=== PATIENT | male | born 1975 ===

== ENCOUNTER 2020-11-06 13:43 | Emergency (ER) | payer OTHER, SELFPAY ==
--- NOTE | ~2020-11-06 | XR_ITS ---
EXAMINATION: XR ANKLE, LEFT CLINICAL INFORMATION: Pain COMPARISON: None TECHNIQUE: AP, lateral, and mortise views of the left ankle. FINDINGS: There is an osteochondral lesion medial side superior talar dome measuring at least 0.5 cm with extension to the articular surface. The ankle mortise is symmetric. The malleoli are intact. There is spurring from the medial malleolus and distal anterior tibia. There are bulky posterior and plantar calcaneal spurs. The retrocalcaneal recess is preserved. The subtalar joint is unremarkable. XR/XR ankle LT min 3V IMPRESSION: 1. Osteochondral lesion medial superior talar dome extending to articular surface. 2. Bulky posterior and plantar calcaneal spurs. 3. The malleoli are intact. Ankle mortise is symmetric.
--- NOTE | ~2020-11-06 | XR_ITS ---
EXAMINATION: XR LUMBOSACRAL SPINE CLINICAL INFORMATION: Pain COMPARISON: Radiographs lumbar spine 06/22/2018. TECHNIQUE: Three views of the lumbosacral spine. FINDINGS: There is normal lumbar segmentation with 5 nonrib-bearing lumbar vertebrae of normal height. There is again mild straightening of the lumbar lordosis. There is no lumbar vertebral compression, spondylolisthesis, destructive process. There are multilevel degenerative disc changes with mild disc narrowing and endplate sclerosis and multilevel vertebral spurring, greatest at L1-L2 and L5-S1. There is facet degeneration L4-S1. Degenerative changes again noted lower SI joints, greater on right. XR/XR lumbar spine 2-3V IMPRESSION: Multilevel degenerative changes lumbosacral spine similar to prior exam 06/22/2018.
[2020-11-06 15:57] VITALS: BP 149/80; PULSE 85; RESP 20; TEMP 37.3; O2SAT 95; BMI 67.3
--- NOTE | 2020-11-06 17:55 | ED.FALL ---
HPI - Fall General Chief Complaint: Fall Stated Complaint: fall lower back pain Time Seen by Provider: 11/06/20 17:53 History of Present Illness HPI Narrative: Patient is a 45-year-old male accidentally fell in a porch. Complaining of pain to the ankle on the left. Complaining of back pain. Patient denies any head injury. Not on any blood thinners. He is a large male approximately 500 lb. No fever no chills no cough no congestion no abdominal pain. Patient had a loose stepped in the porch. Steps on it accidentally. Subsequently patient fell. No loss of consciousness. Related Data Home Medications Medication Instructions Recorded Confirmed citalopram 40 mg tablet 40 mg PO DAILY 01/05/20 05/17/20 lorazepam 1 mg tablet 0 mg PO 01/05/20 05/17/20 trazodone 100 mg tablet 0 mg PO 01/05/20 05/17/20 zolpidem 10 mg tablet 10 mg PO BEDTIME PRN 01/05/20 05/17/20 Previous Rx's Medication Instructions Recorded triamcinolone acetonide 0.5 % 1 applic TOPICAL BID 30 Days #30 g 01/10/20 topical cream gabapentin 600 mg tablet 600 mg PO BID #60 tab 03/09/20 Allergies Allergy/AdvReac Type Severity Reaction Status Date / Time No Known Allergies Allergy Verified 05/17/20 17:36 Review of Systems Review of Systems: No fever no chills no chest pain or shortness of breath no diaphoresis. No nausea no vomiting no head injury. Yes all other systems are reviewed and are negative PMFSH Past Medical History Attestation statement: The following information was validated with the patient. Medical History Blurry vision COVID-19 Daytime sleepiness Depression with anxiety Insomnia Skin lesion Super-super obese Surgical History No pertinent past surgical history Family History Family History Father Diabetes Hypertension Paternal Grandmother Diabetes Mother Hypertension Social History Social History Advance Directives: No Advance Directives Information Provided: No Physical Exam Vital Signs: Vital Signs: Last Vital Signs Temp 99.2 F 11/06/20 15:57 Pulse 85 11/06/20 15:57 Resp 20 11/06/20 15:57 BP 149/80 H 11/06/20 15:57 Pulse Ox 95 11/06/20 15:57 Body Mass Index 67.3 Appearance: Alert. Oriented X3. No acute distress. Eyes: Pupils equal, round and reactive to light. ENT: Pharynx normal. Neck: Normal inspection. Neck supple. No lymph nodes noted. No crepitus CVS: Normal heart rate and rhythm. Pulses normal. Normal S1 and S2 Respiratory: No respiratory distress. Breath sounds normal. No Wheezing. No rales Abdomen: Soft and nontender. No rigidity. No distention. good BS x4 Skin: Skin warm and dry. Normal skin color. Normal skin turgor. Extremities: No lower extremity edema. Neurovascular intact to all extremities. No Lacerations. No Rash. Positive minimal pain on palpation on the medial malleolus. Range of motion of the ankle intact. There is no pain on palpation of the lateral malleolus there is no pain on palpation at the base of the 5th metatarsal. There is good pulses in the foot there is good sensation in the feet. Capillary refill is less than 2 seconds. Neuro: Oriented X 3. No motor deficit. No sensory deficit. Moving all extermities. No slurred speech MDM - Fall MDM Narrative Medical decision making narrative: X-ray did not show any acute fracture. A cyst was found in the bones on the left ankle. Will have patient follow-up with orthopedics on an outpatient basis. Motrin for pain. Close follow-up. Discharge Plan Discharge Clinical Impression: Sprain of ankle, Back sprain Patient Disposition: Home, Self-Care Instructions: Ankle Sprain (ED), Back Pain (ED) Prescriptions: No Action triamcinolone acetonide 0.5 % cream 1 applic topical BID 30 Days Qty: 30 RF: 11 gabapentin 600 mg tablet 600 mg PO BID Qty: 60 RF: 6 trazodone 100 mg tablet 0 mg PO RF: 0 citalopram 40 mg tablet 40 mg PO DAILY RF: 0 lorazepam 1 mg tablet 0 mg PO RF: 0 zolpidem 10 mg tablet 10 mg PO BEDTIME PRNRF: 0 Referrals: Bill Ryder MD [Physician] - 2 days (Ice. There is a cyst noted in your left ankle. Close follow-up with Orthopedic advised.)
[2020-11-06] MEDS: Diphth,Pertus(ACell),Tet Adult 0.5 ML SYRINGE IM (18:37)
== END 2020-11-06 18:45 | disposition home or self-care (01) ==
PROVIDERS: Emergency Provider Emergency Medicine Emergency Medical Services; PCP Internal Medicine
DX: S93.402A Sprain of unspecified ligament of left ankle, initial encounter (principal); S33.5XXA Sprain of ligaments of lumbar spine, initial encounter; W17.89XA Other fall from one level to another, initial encounter; M85.472 Solitary bone cyst, left ankle and foot; E66.01 Morbid (severe) obesity due to excess calories; Y93.89 Activity, other specified; Y92.038 Other place in apartment as the place of occurrence of the external cause; Y99.9 Unspecified external cause status
CPT/HCPCS: 72100; 73610; 90471; 90715; 99283; 99284

== ENCOUNTER → 2021-06-12 13:50 | Outpatient (BNVA) | payer OTHER, SELFPAY | PROVIDERS: PCP Internal Medicine; Visit Provider Physician Assistant Surgical | DX: E66.01 Morbid (severe) obesity due to excess calories (principal); Z68.44 Body mass index [BMI] 60.0-69.9, adult | CPT/HCPCS: 99212 ==

== ENCOUNTER → 2021-06-19 10:10 | Outpatient (BNVA) | payer OTHER, SELFPAY | PROVIDERS: PCP Internal Medicine; Referring Provider Internal Medicine; Visit Provider Physician Assistant | DX: Z13.89 Encounter for screening for other disorder (principal) ==

== ENCOUNTER 2021-06-20 06:31 | Outpatient (REF) | payer OTHER, SELFPAY ==
--- NOTE | ~2021-06-20 | XR_ITS ---
EXAMINATION: XR CHEST CLINICAL INFORMATION: Morbid obesity COMPARISON: 08/19/2018 TECHNIQUE: 2 views of the chest were obtained. FINDINGS: Normal symmetric lung volumes. No parenchymal consolidation. No pleural effusion. No pneumothorax. Cardiomediastinal silhouette and pulmonary vascularity are within normal limits. No acute osseous abnormalities. XR/XR chest 2V IMPRESSION: No acute findings.
--- NOTE | 2021-06-20 06:39 | ECG_ITS ---
Test Reason : OBESITY Blood Pressure : / mmHG Vent. Rate : 075 BPM Atrial Rate : 075 BPM P-R Int : 180 ms QRS Dur : 084 ms QT Int : 370 ms P-R-T Axes : 060 074 059 degrees QTc Int : 413 ms Normal sinus rhythm Normal ECG When compared with ECG of 18-MAY-2010 09:31, Vent. rate has decreased BY 37 BPM Referred By: Amadeo Kang Electronically Signed By:SUSHIL REBOLLEDO MD
[2021-06-20 06:56] LABS: MANUAL DIFF FLAG NO
[2021-06-20 07:04] LABS: Basophils Absolute Auto 0.1 X10*3/uL (0.0-0.2); Basophils Percent Auto 0.5 % (0-2); Eosinophils Absolute Auto 0.2 X10*3/uL (0.0-0.4); Hematocrit 43.1 % (42.0-52.0); Hemoglobin 13.6 g/dl (14.0-18.0); Imm Gran Abs Auto 0.05 X10*3/uL (0.00-0.03); Imm Gran Pct Auto 0.4 % (0.0-0.4); Lymphocytes Absolute Auto 3.1 X10*3/uL (1.2-4.9); Lymphocytes Percent Auto 26.1 % (20-40); Mean Corpuscular HGB Conc 31.6 g/dl (31.0-36.0); Mean Corpuscular Hemoglobin 26.7 pg (27.0-33.0); Mean Corpuscular Volume 84.7 fL (80.0-98.0); Mean Platelet Volume 10.4 fL (9.4-12.4); Monocytes Absolute Auto 0.8 X10*3/uL (0.1-1.2); Monocytes Percent Auto 6.8 % (2-11); Neutrophils Absolute Auto 7.5 x10*3/uL (2.0-8.3); Neutrophils Percent Auto 64.2 % (45-73); Platelet Count 280 X10*3/uL (160-400); Red Blood Count 5.09 X10*6/uL (4.60-5.80); Red Cell Distribution Width 13.7 % (11.0-16.0); White Blood Count 11.7 X10*3/uL (4.8-10.8)
[2021-06-20 07:25] LABS: Alanine Aminotransferase 27 U/L (0-40); Albumin Level 4.2 g/dL (3.5-5.0); Alkaline Phosphatase 54 U/L (39-117); Anion Gap 14 (12-20); Aspartate Amino Transferase 20 U/L (5-37); Bilirubin Total 0.6 mg/dL (0.0-1.0); Blood Urea Nitrogen 15 mg/dL (9-16); C Reactive Protein 4.16 mg/dL (< or = 0.50); Calcium 9.8 mg/dL (8.4-10.2); Carbon Dioxide 26 mmol/L (22-29); Chloride 102 mmol/L (96-108); Cholesterol 161 mg/dL; Estimated Glomerular Filt Rate > 60; Glucose Random 102 mg/dL (60-115); HDL Cholesterol 36 mg/dL; Iron 46 mcg/dL (45-160); LDL Cholesterol Calculated 101 mg/dl; Percent Iron Saturation 15 % (15-50); Potassium 4.4 mmol/L (3.3-5.1); Sodium 138 mmol/L (135-145); Total Iron Binding Capacity 300 mcg/dL (228-428); Total Protein 7.3 g/dL (6.5-8.0); Triglycerides 120 mg/dL; Unsaturated Iron Binding 254 ug/dL
[2021-06-20 08:00] LABS: TSH reflex Free T4 2.71 uIU/mL (0.32-4.0)
[2021-06-20 08:19] LABS: Estimated Average Glucose 88 mg/dL; Hemoglobin A1c % 4.7 %
[2021-06-20 08:44] LABS: Folate 14.3 ng/mL (> or = 4.0)
[2021-06-20 08:53] LABS: Ferritin 687 ng/mL (20-250)
[2021-06-20 09:24] LABS: Vitamin B12 334 pg/mL (200-900)
[2021-06-20 15:22] LABS: Vitamin D 25-OH Total 8.8 ng/mL (>30)
[2021-06-21 15:45] LABS: Calcium (PTHI) 9.4 mg/dL (8.6-10.3); PTHI 51 pg/mL (16-77)
[2021-06-25 03:02] LABS: Zinc 72 mcg/dL (60-130)
[2021-06-26 09:56] LABS: Vitamin A 33 mcg/dL (38-98)
[2021-06-26 13:30] LABS: Vitamin B1 10 nmol/L (8-30)
== END 2021-06-20 06:32 | disposition home or self-care (01) ==
LOC: HO.XRAY 06:31
PROVIDERS: PCP Internal Medicine; Visit Provider Physician Assistant Surgical
DX: E66.01 Morbid (severe) obesity due to excess calories (principal)
CPT/HCPCS: 36415; 71046; 80053; 80061; 82306; 82607; 82728; 82746; 83036; 83540; 83970; 84425; 84443; 84590; 84630; 85025; 86140; 93005

== ENCOUNTER → 2021-07-01 12:37 | Outpatient (BNVA) | payer OTHER, SELFPAY | PROVIDERS: PCP Internal Medicine; Referring Provider Internal Medicine; Visit Provider Physician Assistant | DX: Z13.89 Encounter for screening for other disorder (principal) ==

== ENCOUNTER → 2021-07-03 08:14 | Outpatient (BNVA) | payer OTHER, SELFPAY | PROVIDERS: PCP Internal Medicine; Visit Provider Dietitian, Registered | DX: E66.01 Morbid (severe) obesity due to excess calories (principal); Z71.3 Dietary counseling and surveillance | CPT/HCPCS: 97802 ==

== ENCOUNTER → 2021-07-16 11:54 | Outpatient (BNVA) | payer OTHER, SELFPAY | PROVIDERS: PCP Internal Medicine; Referring Provider Internal Medicine; Visit Provider Physician Assistant | DX: Z13.89 Encounter for screening for other disorder (principal) ==

== ENCOUNTER → 2021-07-18 08:40 | Outpatient (BNVA) | payer OTHER, SELFPAY | PROVIDERS: PCP Internal Medicine; Visit Provider Counselor Mental Health | DX: F41.8 Other specified anxiety disorders (principal) | CPT/HCPCS: 90791 ==

== ENCOUNTER → 2021-07-24 08:22 | Outpatient (BNVA) | payer OTHER, SELFPAY | PROVIDERS: PCP Internal Medicine; Referring Provider Internal Medicine; Visit Provider Physician Assistant Surgical | DX: E66.01 Morbid (severe) obesity due to excess calories (principal); Z11.0 Encounter for screening for intestinal infectious diseases; Z68.44 Body mass index [BMI] 60.0-69.9, adult | CPT/HCPCS: 99211; 99212 ==

== ENCOUNTER 2021-07-26 15:52 | Outpatient (REF) | payer OTHER, SELFPAY ==
[2021-07-27 10:05] LABS: H Pylori Breath Test Negative (Negative)
== END 2021-07-26 15:53 | disposition home or self-care (01) ==
LOC: HO.LNP 15:52
PROVIDERS: Visit Provider Physician Assistant Surgical
DX: E66.01 Morbid (severe) obesity due to excess calories (principal); Z11.0 Encounter for screening for intestinal infectious diseases
CPT/HCPCS: 83013

== ENCOUNTER 2021-08-01 | Outpatient (REF) | payer OTHER, SELFPAY | END 2021-08-01 00:01 | LOC: CF | PROVIDERS: Visit Provider Dietitian, Registered | DX: E66.01 Morbid (severe) obesity due to excess calories (principal); R40.0 Somnolence; F41.8 Other specified anxiety disorders; Z68.44 Body mass index [BMI] 60.0-69.9, adult | CPT/HCPCS: 97803 ==

== ENCOUNTER → 2021-08-21 11:13 | Outpatient (BNVA) | payer OTHER, SELFPAY | PROVIDERS: PCP Internal Medicine; Referring Provider Surgery; Visit Provider Physician Assistant Surgical | DX: E66.01 Morbid (severe) obesity due to excess calories (principal); Z68.44 Body mass index [BMI] 60.0-69.9, adult | CPT/HCPCS: 99212 ==

== ENCOUNTER → 2021-09-13 08:10 | Outpatient (BNVA) | payer OTHER, SELFPAY | PROVIDERS: PCP Internal Medicine; Visit Provider Surgery | DX: E66.01 Morbid (severe) obesity due to excess calories (principal); R40.0 Somnolence; G47.00 Insomnia, unspecified | CPT/HCPCS: Q3014 ==

== ENCOUNTER → 2021-09-18 15:08 | Outpatient (BNVA) | payer OTHER, SELFPAY | PROVIDERS: PCP Internal Medicine; Referring Provider Physician Assistant Surgical; Visit Provider Dietitian, Registered | DX: E66.01 Morbid (severe) obesity due to excess calories (principal); Z68.44 Body mass index [BMI] 60.0-69.9, adult | CPT/HCPCS: 97803 ==

== ENCOUNTER 2021-09-25 07:41 | Outpatient (REF) | payer OTHER, SELFPAY ==
--- NOTE | ~2021-09-25 | FL_ITS ---
EXAMINATION: XR FLUOROSCOPY UPPER GI WITH AIR CLINICAL INFORMATION: Obesity COMPARISON: None TECHNIQUE: Upper GI was performed using thin and thick barium and effervescent granules. FINDINGS: Esophageal motility is normal. No reflux or hernia is seen. The stomach and duodenum are normal. No fold thickening, ulcer, mass or stricture is seen. FLUOROSCOPY TIME: 0.3 minutes DOSE AREA PRODUCT: 5.9 regalado per centimeter squared. 14 saved fluoroscopic images and 3 overhead images FL/FL upper GI w air IMPRESSION: Unremarkable examination.
--- NOTE | ~2021-09-25 | US_ITS ---
EXAMINATION: US COMPLETE ABDOMEN WITH LIVER ELASTOGRAPHY CLINICAL INFORMATION: Morbid obesity due to excess calories. COMPARISON: None. TECHNIQUE: Real-time imaging of the abdominal viscera. Noninvasive ultrasound liver fibrosis assessment is performed using Adilson ElastPQ point quantification shear wave elastography (2D-SWE) with a C5-2 MHz transducer. Multiple elastography samples are obtained. FINDINGS: PANCREAS: . The visualized pancreatic head is normal in appearance. The body and the tail of the pancreas is obscured from visualization by the overlying bowel gas. ABDOMINAL AORTA: The proximal and mid aortic segments are normal in caliber. INFERIOR VENA CAVA: Visualized portions are normal. LIVER: The liver demonstrates normal size, contour and increased echogenicity. No focal lesion or intrahepatic biliary duct dilatation. The right lobe measures 20.4 cm in length. The left lobe measures 15.9 cm in length. Portal flow is hepatopetal. Shear wave liver elastography median stiffness is 1.43 m/s (reference: normal median stiffness is 1.3 m/s or less). IQR/median stiffness to assess sampling precision is 0.22 (reference: good quality data set is IQR/median stiffness of 0.15 or less). GALLBLADDER: Gallbladder wall thickness measures 0.3 cm The gallbladder is physiologically distended without evidence of stones, sludge, polyps, wall thickening or pericholecystic fluid. There is some haziness seen throughout the gallbladder wall, likely artifact. COMMON BILE DUCT: Normal in caliber measuring 0.4 cm in diameter. RIGHT KIDNEY: Normal. No hydronephrosis. No renal calculi or focal parenchymal lesions. The kidney measures 16.2 cm in maximum dimension. LEFT KIDNEY: Normal. No hydronephrosis. No renal calculi or focal parenchymal lesions. The kidney measures 1 cm in maximum dimension. SPLEEN: Normal. The spleen riytmbxt27.8 cm in maximum dimension. FREE FLUID: None. US/US abdomen comp w elastography IMPRESSION: Hepatic steatosis without focal lesion seen. The rest of the abdominal ultrasound is unremarkable. The body and tail of the pancreas and distal abdominal aorta are not visualized. 2. Liver elastography: Median liver stiffness 1.43 suggestive of cACLD (ruled out) REFERENCE: Society of Radiologists in Ultrasound Liver Stiffness Thresholds (2019): LIVER STIFFNESS THRESHOLDS: *Liver Stiffness equal or less than 1.3 m/s: High probability of being normal. *Liver Stiffness less than 1.7 m/s: In the absence of other known clinical signs, rules out compensated advanced chronic liver disease. *Liver Stiffness 1.7-2.1 m/s: Suggestive of compensated advanced chronic liver disease but need further test for confirmation. *Liver Stiffness over 2.1 m/s: Rules in compensated advanced chronic liver disease. *Liver Stiffness over 2.4 m/s: Suggestive of clinically significant portal hypertension. QUALITY OF DATA SET: *IQR/Median value equal or less than 0.15 implies a quality data set. *IQR/Median value over 0.15 implies a poor quality data set. SIGNIFICANT CHANGE FROM PRIOR EXAM: Significant change if liver stiffness measurement is 10% or greater from prior exam. OTHER CONSIDERATIONS: The stage of liver fibrosis may be overestimated in the setting of acute hepatitis, liver inflammation, elevated liver function tests, hepatic vascular congestion, obstructive cholestasis, non-fasting state, and infiltrative diseases such as amyloidosis and lymphoma. In some patients with NAFLD, the liver stiffness thresholds for compensated advanced chronic liver disease may be lower. In causes other than viral hepatitis and NAFLD, liver stiffness thresholds are not well established.
== END 2021-09-25 07:42 | disposition home or self-care (01) ==
LOC: HO.US 07:41
PROVIDERS: PCP Internal Medicine; Visit Provider Physician Assistant Surgical
DX: E66.01 Morbid (severe) obesity due to excess calories (principal)
CPT/HCPCS: 74246; 76705; 76981

== ENCOUNTER → 2021-10-14 14:30 | Outpatient (BNVA) | payer OTHER, SELFPAY | PROVIDERS: PCP Internal Medicine; Visit Provider Physician Assistant Surgical | DX: E66.01 Morbid (severe) obesity due to excess calories (principal); Z68.44 Body mass index [BMI] 60.0-69.9, adult | CPT/HCPCS: 99212 ==

== ENCOUNTER → 2021-10-24 09:09 | Outpatient (BNVA) | payer OTHER, SELFPAY | PROVIDERS: PCP Internal Medicine; Visit Provider Internal Medicine | DX: G47.30 Sleep apnea, unspecified (principal); E66.01 Morbid (severe) obesity due to excess calories; Z68.44 Body mass index [BMI] 60.0-69.9, adult | CPT/HCPCS: 99202 ==

== ENCOUNTER → 2021-11-20 11:02 | Outpatient (REF) | payer OTHER, SELFPAY | LOC: HO.SL 11:02 | PROVIDERS: PCP Internal Medicine; Visit Provider Internal Medicine | DX: G47.33 Obstructive sleep apnea (adult) (pediatric) (principal); E66.01 Morbid (severe) obesity due to excess calories | CPT/HCPCS: 95806 ==

== ENCOUNTER → 2021-11-22 10:45 | Outpatient (BNVA) | payer OTHER, SELFPAY | PROVIDERS: PCP Internal Medicine; Visit Provider Physician Assistant Surgical | DX: E66.01 Morbid (severe) obesity due to excess calories (principal); Z68.44 Body mass index [BMI] 60.0-69.9, adult; Z71.3 Dietary counseling and surveillance | CPT/HCPCS: 99212 ==

== ENCOUNTER → 2021-11-28 08:24 | Outpatient (BNVA) | payer OTHER, SELFPAY | PROVIDERS: PCP Internal Medicine; Visit Provider Internal Medicine | DX: G47.30 Sleep apnea, unspecified (principal); G47.00 Insomnia, unspecified; E66.01 Morbid (severe) obesity due to excess calories; Z68.44 Body mass index [BMI] 60.0-69.9, adult | CPT/HCPCS: 99212 ==

== ENCOUNTER → 2021-12-13 08:55 | Outpatient (BNVA) | payer OTHER, SELFPAY | PROVIDERS: PCP Internal Medicine; Visit Provider Surgery | DX: E66.01 Morbid (severe) obesity due to excess calories (principal); G47.30 Sleep apnea, unspecified | CPT/HCPCS: Q3014 ==

== ENCOUNTER → 2022-01-15 14:20 | Outpatient (BNVA) | payer OTHER, SELFPAY | PROVIDERS: PCP Internal Medicine; Visit Provider Physician Assistant Surgical | DX: E66.01 Morbid (severe) obesity due to excess calories (principal); Z68.44 Body mass index [BMI] 60.0-69.9, adult | CPT/HCPCS: 99212 ==

== ENCOUNTER 2022-10-09 12:09 | Outpatient (AMB) | payer OTHER, SELFPAY ==
--- NOTE | 2022-10-09 15:22 | MHC.OFFWIV ---
Intake Vital Signs 10/09/22 15:25 BP 126/80 Blood Pressure Location Lt brachial Position Sitting Pulse 84 Pulse Source Pulse Oximeter Temp 97.3 F Temp Source Temporal Artery Scan Pulse Oximetry (%) 98 Oxygen Delivery Method Room Air Intake Visit Reasons: EP RT leg weakness,back pain Intake Note: Patient here because on thursday he was unable to sleep, when he woke up the next day with weakness in right leg. He has also been having lower back pain for a few days and noticed that he gets a sharp pain in the right upper leg. Patient Tobacco Use Status: Former Tobacco user Allergies No Known Allergies Allergy (Verified 10/09/22 15:25) Do you need a note to return to daycare/school/sports/work: No HPI HPI Comments History of Present Illness Details 1544 This is a 47-year-old male history of obesity, hypertension, anxiety, depression, presenting to the clinic for sick visit, patient reports that since Thursday he has been experiencing lower back pain worse on the left-hand side radiating into left lower extremity just above the knee, as well as right lower back pain without radiation. Patient tells me that he is also very concerned because he feels like his right leg is weak, he feels like he can not lift it, he tells me it is not due to pain however it is due to weakness. He tells me he feels incapable walking due to the weakness and he feels like when he does walk he is going to fall. He has never felt this way before. He also reports decreased sensation to this lower extremity particularly overlying the quadriceps muscle anteriorly. Patient denies chest pain, shortness of breath, headache, vision changes, dizziness, weakness, nausea, vomiting, abdominal pain , no urinary/bowel incontinence/retention. Not on blood thinners. On exam there is decreased sensation to the right upper extremity from the hip down to the knee, normal sensation to left lower extremity. Patient has tenderness to palpation overlying bilateral paraspinous muscles in lumbar region throughout, no midline tenderness. There is 3/5 strength to right lower extremity and 5/5 strength to left lower extremity. Patient ambulatory with slow gait and appears very uncomfortable. Likely lumbar radiculopathy. Versus sciatica. No signs cord compression. Unlikely that this is cauda equina or epidural abscess. However unclear etiology of right lower extremity decreased sensation. Differentials include Guillain-Charlotte as it does appear to be ascending in nature however not bilateral. No imaging modalities available at this Urgent Care at this time, patient's symptoms should be further evaluated in the emergency department , as well as for pain control as he is having a difficult time ambulating. [facility] I did offer patient an ambulance however he refused. [facility] Medical History Blurry vision COVID-19 Daytime sleepiness Depression with anxiety Insomnia Skin lesion Super-super obese Surgical History No pertinent past surgical history Family History Father Diabetes Hypertension Paternal Grandmother Diabetes Mother Hypertension Social History Housing: Apartment Alcohol intake: former Patient Tobacco Use Status: Former Tobacco user Tobacco use type: Cigarette Years Smoked: 26 e-Cigarette/Vaping Use: Never Used Second Hand Smoke Exposure: No service: No Current occupational status: unemployed Cognitive needs: No Hearing needs: No Vision needs: No Review of Systems Const Details: Constitutional : No Weight loss, No Fever, No Chills, ENT/Mouth : No Hearing loss, No Ear Pain, No Nasal Congestion, No Sinus Pain, No Hoarseness, No sore throat, No Rhinorrhea, No Swallowing Difficulty Cardiovascular : No Chest Pain, No SOB Respiratory : No Cough, No Dyspnea Gastrointestinal : No Nausea, No Vomiting, No Diarrhea, No abdominal Pain, No Hematochezia, No Melena Genitourinary : No Dysuria, No Urinary Frequency, No Hematuria, No Urinary Incontinence, Musculoskeletal : positive back pain Skin : No Skin Lesions, No rash Neuro : No Weakness, No Numbness, No Paresthesias, no loss of bowel or bladder incontinence, no saddle anesthesia All systems reviewed & are unremarkable except as noted in HPI and below Physical Exam Vital Signs: Last Vital Signs Temp 97.3 F 10/09/22 15:25 Pulse 84 10/09/22 15:25 BP 126/80 10/09/22 15:25 Pulse Ox 98 10/09/22 15:25 Oxygen Delivery Method Room Air 07/13/23 15:25 vss Appearance: Alert.? Oriented X3.? No acute distress.? Head: Normocephalic, atraumatic, no step-offs or deformities Eyes: Pupils equal, round and reactive to light.? CVS: Normal heart rate and rhythm.? Pulses normal.? Respiratory: No respiratory distress.? Breath sounds normal.? Abdomen: Soft and nontender.? Skin: Skin warm and dry.? Normal skin color.? Normal skin turgor.? Extremities: No lower extremity edema.? No calf ttp. 5/5 strength to bilateral upper Extremities, 3/5 strength right lower extremity and 5/5 strength to left lower extremity. Decreased sensation to entire right lower extremity when compared to left lower extremity. Back: No midline tenderness, no C-spine tenderness, full range of motion, no CVA tenderness bilaterally + TTP To bilateral lumbar paraspinous muscles. No midline tenderness. Neuro: Oriented X 3.? No motor deficit.? No sensory deficit. CN 2-12 intact Assessment & Plan Assessment & Plan (1) Low back pain: Code(s): M54.50 - Low back pain, unspecified (2) Lower extremity weakness: Code(s): R29.898 - Other symptoms and signs involving the musculoskeletal system (3) Decreased sensation of leg: Code(s): R20.8 - Other disturbances of skin sensation Plan Patient will go to ED for further evaluation and tx Coding Level of Care Code Est Pt Level 3 (29803) Diagnoses Low back pain M54.50 Lower extremity weakness R29.898 Decreased sensation of leg R20.8
[2022-10-09 15:25] VITALS: BP 126/80; PULSE 84; TEMP 36.3; O2SAT 98
== END 2022-10-09 16:37 | disposition home or self-care (01) ==
PROVIDERS: PCP Nurse Practitioner Family; Visit Provider Physician Assistant
DX: M54.50 Low back pain, unspecified (principal); R29.898 Other symptoms and signs involving the musculoskeletal system; R20.8 Other disturbances of skin sensation
CPT/HCPCS: 99213

== ENCOUNTER 2022-10-09 16:00 | Emergency (ER) | payer OTHER, SELFPAY ==
--- NOTE | 2022-10-09 16:15 | ED.GENADULT ---
HPI - General Adult General Chief complaint: Back Pain/Injury Stated complaint: right hip pain, lower back pain Related Data Home Medications Medication Instructions Recorded Confirmed citalopram 40 mg tablet 40 mg PO DAILY 01/05/20 09/11/22 lorazepam 1 mg tablet 0 mg PO 01/05/20 09/11/22 trazodone 100 mg tablet 0 mg PO 01/05/20 09/11/22 zolpidem 10 mg tablet 10 mg PO BEDTIME PRN 01/05/20 09/11/22 Previous Rx's Medication Instructions Recorded triamcinolone acetonide 0.5 % 1 appl topical BID 30 days #30 06/04/21 topical cream grams gabapentin 600 mg tablet 600 mg PO Q8H 30 days #90 tabs 09/11/22 ibuprofen 800 mg tablet 800 mg PO Q8H PRN pain 30 days #90 09/11/22 tabs tramadol 50 mg tablet 50 mg PO BID PRN pain 7 days #14 09/11/22 tabs Allergies Allergy/AdvReac Type Severity Reaction Status Date / Time No Known Allergies Allergy Verified 10/09/22 15:25 [facility] Past Medical History Medical History Blurry vision COVID-19 Daytime sleepiness Depression with anxiety Insomnia Skin lesion Super-super obese Surgical History No pertinent past surgical history Family History Family History Father Diabetes Hypertension Paternal Grandmother Diabetes Mother Hypertension Social History Social History Housing: Apartment Alcohol intake: former Patient Tobacco Use Status: Former Tobacco user Tobacco use type: Cigarette Years Smoked: 26 e-Cigarette/Vaping Use: Never Used Second Hand Smoke Exposure: No service: No Current occupational status: unemployed Cognitive needs: No Hearing needs: No Vision needs: No Physical Exam ED Vital Signs: Vital Signs - 24 hr 10/09/22 16:16 Temperature 98.5 F Pulse Rate 83 Respiratory Rate 18 Blood Pressure 148/90 H Oxygen Delivery Method Room Air BMI result Body Mass Index 67.9 Course Course Course Narrative: This is a rapid medical exam: Additional HPI, ROS, PE not included below will be deferred to primary provider. Patient is a 47-year-old male presenting to the emergency department from urgent care with low back pain, R>L, and right leg weakness and decreased sensation. States he slept on the couch Thursday and woke with weakness to his right leg. States when he stands straight up he develops a sharp pain to the anterior aspect of his right leg. Denies fevers. Patient was seen prior to arrival at urgent care. Provider there called in expect and reports pain has 3/5 strength to right leg, 5/5 strength to left leg and decreased sensation to right thigh. Denies fall or other trauma. Plan: lumbar x-ray Discharge Plan Discharge Clinical Impression: Low back pain Patient Disposition: Elopement Prescriptions: No Action triamcinolone acetonide 0.5 % cream 1 appl topical BID 30 Days Qty: 30 0RF trazodone 100 mg tablet 0 mg PO citalopram 40 mg tablet 40 mg PO DAILY lorazepam 1 mg tablet 0 mg PO zolpidem 10 mg tablet 10 mg PO BEDTIME PRN gabapentin 600 mg tablet 600 mg PO Q8H 30 Days Qty: 90 6RF ibuprofen 800 mg tablet 800 mg PO Q8H PRN (Reason: pain) 30 Days Qty: 90 0RF tramadol 50 mg tablet 50 mg PO BID PRN (Reason: pain) 7 Days Qty: 14 0RF
[2022-10-09 16:16] VITALS: BP 148/90; PULSE 83; RESP 18; TEMP 36.9; BMI 67.9
== END 2022-10-09 17:58 | disposition left against medical advice (07) ==
PROVIDERS: Emergency Provider Emergency Medicine; PCP Internal Medicine
DX: M54.50 Low back pain, unspecified (principal); Z87.891 Personal history of nicotine dependence; Z79.899 Other long term (current) drug therapy
CPT/HCPCS: 99281

== ENCOUNTER 2022-10-10 06:30 | Emergency (ER) | payer OTHER, SELFPAY ==
[2022-10-10 07:23] VITALS: BP 149/79; PULSE 84; RESP 16; TEMP 36.3; O2SAT 98; BMI 67.9
--- NOTE | 2022-10-10 07:45 | ED_ITS ---
HPI - Back Pain/Injury General Chief Complaint: Back Pain/Injury Stated Complaint: r leg back pain no inj Time Seen by Provider: 10/10/22 07:32 Source: patient Mode of arrival: ambulatory Limitations: no limitations History of Present Illness HPI Narrative: This is a very pleasant 47 years old male with history of chronic lower back pain for many years presented to the emergency department complaining of lower back pain radiated to the red right thigh he was seen in in the urgent care yesterday referred to us. He came last night but because the wait was long left without being seen. He denies any fever chills vomiting denies any weakness of the legs is able to ambulate he denies any bowels or urine incontinence MD elicited complaint: back pain Pertinent past history: prior back pain Onset (ago): week(s) (1) Timing: constant Severity: moderate Quality: sharp Location: lumbar spine Radiation: other (rt thigh) Exacerbating factors: none Relieving factors: none Associated symptoms: numbness Related Data Home Medications Medication Instructions Recorded Confirmed citalopram 40 mg tablet 40 mg PO DAILY 01/05/20 09/11/22 lorazepam 1 mg tablet 0 mg PO 01/05/20 09/11/22 trazodone 100 mg tablet 0 mg PO 01/05/20 09/11/22 zolpidem 10 mg tablet 10 mg PO BEDTIME PRN 01/05/20 09/11/22 Previous Rx's Medication Instructions Recorded triamcinolone acetonide 0.5 % 1 appl topical BID 30 days #30 06/04/21 topical cream grams gabapentin 600 mg tablet 600 mg PO Q8H 30 days #90 tabs 09/11/22 ibuprofen 800 mg tablet 800 mg PO Q8H PRN pain 30 days #90 09/11/22 tabs tramadol 50 mg tablet 50 mg PO BID PRN pain 7 days #14 09/11/22 tabs oxycodone 5 mg capsule 5 mg PO Q8H PRN pain #12 caps 10/10/22 prednisone 20 mg tablet 60 mg PO DAILY 4 days #12 tabs 10/10/22 Allergies Allergy/AdvReac Type Severity Reaction Status Date / Time No Known Allergies Allergy Verified 10/09/22 15:25 Review of Systems Constitutional: Constitutional: Reports no additional constitutional complaints Cardiovascular: Cardiovascular: Reports no additional cardiovascular complaints Musculoskeletal: Comments: back pain PMFSH Past Medical History Attestation statement: The following information was validated with the patient. [facility] Narrative: lower back pain Medical History Blurry vision COVID-19 Daytime sleepiness Depression with anxiety Insomnia Skin lesion Super-super obese Surgical History No pertinent past surgical history Family History Family History Father Diabetes Hypertension Paternal Grandmother Diabetes Mother Hypertension Social History Social History Housing: Apartment Alcohol intake: never Patient Tobacco Use Status: Former Tobacco user Tobacco use type: Cigarette Years Smoked: 26 Smoked in Last 30 Days: No e-Cigarette/Vaping Use: Never Used Second Hand Smoke Exposure: No Use of substances other than those prescribed or required for medical reasons: No Advance Directives: No Advance Directives Information Provided: Yes service: No Current occupational status: unemployed Cognitive needs: No Hearing needs: No Vision needs: No Physical Exam Vital Signs: Vital Signs: Last Vital Signs Temp 97.4 F 10/10/22 07:23 Pulse 84 10/10/22 07:23 Resp 16 10/10/22 07:23 BP 149/79 H 10/10/22 07:23 Pulse Ox 98 10/10/22 07:23 O2 Del Method Room Air 10/10/22 07:23 BMI result Body Mass Index 67.9 He looks well is nontoxic no distress Const: General: cooperative, healthy appearing, comfortable, no acute distress, well developed, alert and awake Nutritional Appearance: well nourished Orientation/consciousness: patient oriented x3 HEENT: Head: Yes normal to inspection Face and sinus: Yes normal facial exam Mouth: Normal oral and palatal mucosa present Neck: Neck: Yes normal visual inspection Chest: Chest palpation & inspection: normal inspection of the chest Resp: Effort & Inspection: normal respiratory effort Auscultation: clear to auscultation bilaterally Cardio: Jugular venous distension: no JVD Rate: regular rate Rhythm: regular rhythm GI: Inspection: Yes normal to inspection Palpation (GI): Soft to palpation, not firm, nontender and Guarding due to palpation present (GI) Percussion: Yes normal to percussion Neuro: Other: Patient has a normal strength in the right lower extremity reflexes intact , he has slightly decreased sensation to the right thigh. General: patient oriented x3, no focal motor deficits and CN's II-XI intact bilaterally Medical Decision Making Medical Decision Making [facility] Narrative: Basically the patient presented with lower back pain radiated to the right thigh with some numbness in the right thigh but no weakness, no incontinence to urine or stools no fever no history of drug abuse. I think overall it can be discharged home he is ambulatory year follow-up with the back specialist I explained the patient most likely will need an MRI which I do not think it needs to be done emergently Admission/Observation Consideration of admission/observation: Escalation of care including admission/observation considered Tests considered The following testing was considered but not selected: I consider an MRI of the back however has no strength deficit the no red flag p kennedi discharge home Discharge Plan Discharge Clinical Impression: Sciatica Patient Disposition: Home, Self-Care Instructions: Sciatica (ED) Additional Instructions: Follow-up with the workforce specialist Dr. Pool : Make an appointment. Return if you are worse weakness in the legs unable to ambulate incontinent of urine and stools Prescriptions: New prednisone 20 mg tablet 60 mg PO DAILY 4 Days Qty: 12 0RF oxycodone 5 mg capsule 5 mg PO Q8H PRN (Reason: pain) Qty: 12 0RF Rx Instructions: Partial Fill upon patient request. No Action triamcinolone acetonide 0.5 % cream 1 appl topical BID 30 Days Qty: 30 0RF trazodone 100 mg tablet 0 mg PO citalopram 40 mg tablet 40 mg PO DAILY lorazepam 1 mg tablet 0 mg PO zolpidem 10 mg tablet 10 mg PO BEDTIME PRN gabapentin 600 mg tablet 600 mg PO Q8H 30 Days Qty: 90 6RF ibuprofen 800 mg tablet 800 mg PO Q8H PRN (Reason: pain) 30 Days Qty: 90 0RF tramadol 50 mg tablet 50 mg PO BID PRN (Reason: pain) 7 Days Qty: 14 0RF Referrals: Aiden Thornton MD, PhD [Physician] - 3 days Interventions: ED Discharge Assessment Last Done: 10/10/22 08:29 Discharge Date/Time: 10/10/22 08:30
== END 2022-10-10 08:30 | disposition home or self-care (01) ==
PROVIDERS: Emergency Provider Emergency Medicine; PCP Internal Medicine
DX: M54.41 Lumbago with sciatica, right side (principal)
CPT/HCPCS: 99283; 99284

== ENCOUNTER 2022-11-10 19:43 | Emergency (ER) | payer OTHER, SELFPAY ==
--- NOTE | ~2022-11-10 | XR_ITS ---
EXAMINATION: XR SHOULDER, RIGHT CLINICAL INFORMATION: Right shoulder pain and no known injury COMPARISON: None available. TECHNIQUE: Four views of the right shoulder. FINDINGS: Marked degenerative changes are seen at the AC joint with sclerosis and osteophytes. The glenohumeral joint is unremarkable. No fractures or dislocation. Small calcification in the subcutaneous tissues not related to rotator cuff. XR/XR shoulder RT min 2V IMPRESSION: Degenerative changes AC joint.
[2022-11-10 19:47] VITALS: BP 168/96; PULSE 81; RESP 18; TEMP 36.4; O2SAT 96; BMI 66.0
--- NOTE | 2022-11-10 19:50 | ECG_ITS ---
Test Reason : RUE PAIN Blood Pressure : / mmHG Vent. Rate : 077 BPM Atrial Rate : 077 BPM P-R Int : 158 ms QRS Dur : 076 ms QT Int : 360 ms P-R-T Axes : 056 067 028 degrees QTc Int : 407 ms Normal sinus rhythm Nonspecific T wave abnormality Abnormal ECG When compared with ECG of 20-JUN-2021 06:41, Nonspecific T wave abnormality now evident in Inferior leads Referred By: Deana Ravi Electronically Signed By:REJI TOTH
--- NOTE | 2022-11-10 19:50 | ED_ITS ---
HPI - Extremity Injury (Upper) General Chief Complaint: Extremity Injury, Upper Stated Complaint: right shoulder pain no inj Time Seen by Provider: 11/10/22 20:40 Source: patient Mode of arrival: ambulatory History of Present Illness HPI narrative: 47-year-old male with atraumatic right shoulder pain, he has had difficulty with the right shoulder previously and reports that it feels burning and stabbing in nature and denies any history of diabetes. Related Data Home Medications Medication Instructions Recorded Confirmed citalopram 40 mg tablet 40 mg PO DAILY 01/05/20 09/11/22 lorazepam 1 mg tablet 0 mg PO 01/05/20 09/11/22 trazodone 100 mg tablet 0 mg PO 01/05/20 09/11/22 zolpidem 10 mg tablet 10 mg PO BEDTIME PRN 01/05/20 09/11/22 Previous Rx's Medication Instructions Recorded triamcinolone acetonide 0.5 % 1 appl topical BID 30 days #30 06/04/21 topical cream grams gabapentin 600 mg tablet 600 mg PO Q8H 30 days #90 tabs 09/11/22 ibuprofen 800 mg tablet 800 mg PO Q8H PRN pain 30 days #90 09/11/22 tabs oxycodone 5 mg capsule 5 mg PO Q8H PRN pain #12 caps 10/10/22 prednisone 20 mg tablet 60 mg PO DAILY 4 days #12 tabs 10/10/22 tramadol 50 mg tablet 50 mg PO BID PRN pain 7 days #14 10/15/22 tabs Allergies Allergy/AdvReac Type Severity Reaction Status Date / Time No Known Allergies Allergy Verified 11/10/22 19:54 Review of Systems Review of Systems: Pertinent positives and negatives as stated in HPI [facility] Past Medical History Source: nursing notes reviewed Medical History Blurry vision COVID-19 Daytime sleepiness Depression with anxiety Insomnia Skin lesion Super-super obese Surgical History No pertinent past surgical history Family History Family History Father Diabetes Hypertension Paternal Grandmother Diabetes Mother Hypertension Social History Social History Housing: Apartment Alcohol intake: never Patient Tobacco Use Status: Former Tobacco user Tobacco use type: Cigarette Years Smoked: 26 e-Cigarette/Vaping Use: Never Used Second Hand Smoke Exposure: No Advance Directives: No Advance Directives Information Provided: Yes service: No Current occupational status: unemployed Cognitive needs: No Hearing needs: No Vision needs: No Physical Exam Vital Signs: Vital Signs: Last Vital Signs Temp 99.1 F 11/10/22 20:41 Pulse 74 11/10/22 20:41 Resp 16 11/10/22 20:41 BP 159/102 H 11/10/22 20:41 Pulse Ox 98 11/10/22 20:41 O2 Del Method Room Air 11/10/22 20:41 BMI result Body Mass Index 66.0 VITAL SIGNS: Reviewed. GENERAL: Well developed, well nourished, in no acute distress. HEAD: Normocephalic/atraumatic EYES: PERRLA, EOMI LUNGS: Normal breath sounds. No adventitious sounds or accessory muscle use. SpO2<98> CARDIOVASCULAR: Regular rate and rhythm without noted murmurs ABDOMEN: Soft, non-tender, non-distended with bowel sounds. MUSCULOSKELETAL: No tenderness, deformities, or effusions noted on gross inspection. EXTREMITIES: No cyanosis, clubbing or edema. RIGHT SHOULDER: Some pain on palpation over bicipital groove, no significant pain over the AC joint neurovascular is intact distal SKIN: Inspection of the skin reveals no rashes NEUROLOGIC: Alert and oriented x 4. Strength and sensation to light touch were grossly intact x 4. Course Course Course Narrative: RME: 47yo M w/PMHx obesity, depression, c/o autramatic R shoulder pain x2 days after waking. denies known injury or fall. denies numbness/tingling, weaknbess, CP R shoulder w/o deformity, +AC joint ttp, decreased ROM 2/2 pain, NV intact distally EKG, XR ordered Full HPI, ROS and PE to be performed by primary ED provider. Medications Administered Discontinued Medications Generic Name Dose Route Start Last Admin Trade Name Freq PRN Reason Stop Dose Admin Acetaminophen 975 mg 11/10/22 21:07 11/10/22 21:14 Acetaminophen 325 Mg Tablet PO 11/10/22 21:08 975 mg ONCE ONE Administration Ibuprofen 400 mg 11/10/22 21:07 11/10/22 21:14 Ibuprofen 400 Mg Tablet PO 11/10/22 21:08 400 mg ONCE ONE Administration Medical Decision Making Medical Decision Making MDM Narrative: 47-year-old male with history and clinical presentation of likely impingement or acute on chronic arthritic pain but low clinical suspicion for fracture or dislocation and felt to be less likely frozen shoulder. No clinical suspicion for ACS. I reviewed x-ray of the shoulder which is negative for fracture or dislocation otherwise my interpretation is in agreement with radiology's impression. Patient received combination analgesics and was directed to follow-up with his primary care provider for referral to physical therapy. EKG appears to be normal sinus and no evidence to suggest acute changes from prior. Differential Diagnosis Differential Diagnoses: The differential diagnosis associated with the presentation includes Please see the discussion above Admission/Observation Consideration of admission/observation: Escalation of care including admission/observation considered Please see the discussion above Independent Interpretation I performed an independent interpretation of an: EKG Interpretation: Normal sinus rhythm, HR-77, no STEMI, VA/QRS/QTC is within normal limits. Radiology Impression Discussion of test interpretation with radiology: I have reviewed the radiologist's reading. Radiologist Impression: Please see the discussion above External Record Review External record reviewed: Outpatient record and Prior outpatient labs Chronic Conditions Patient?s care impacted by: Hypertension Discharge Plan Discharge Clinical Impression: Pain in right shoulder, Impingement of right shoulder Patient Disposition: Home, Self-Care Instructions: Shoulder Impingement Syndrome (ED) Additional Instructions: 1. Resume all home medications as prescribed. 2. Recommend [id number] Tylenol/ibuprofen as needed for right shoulder pain. 3. Follow-up with your primary care provider tomorrow and discuss possible referral for physical therapy. Return to the ER for any worsening symptoms. Prescriptions: No Action triamcinolone acetonide 0.5 % cream 1 appl topical BID 30 Days Qty: 30 0RF tramadol 50 mg tablet 50 mg PO BID PRN (Reason: pain) 7 Days Qty: 14 0RF prednisone 20 mg tablet 60 mg PO DAILY 4 Days Qty: 12 0RF oxycodone 5 mg capsule 5 mg PO Q8H PRN (Reason: pain) Qty: 12 0RF Rx Instructions: Partial Fill upon patient request. trazodone 100 mg tablet 0 mg PO citalopram 40 mg tablet 40 mg PO DAILY lorazepam 1 mg tablet 0 mg PO zolpidem 10 mg tablet 10 mg PO BEDTIME PRN gabapentin 600 mg tablet 600 mg PO Q8H 30 Days Qty: 90 6RF ibuprofen 800 mg tablet 800 mg PO Q8H PRN (Reason: pain) 30 Days Qty: 90 0RF Referrals: Ana Maria Dempsey MD [Primary Care Provider] -
[2022-11-10 20:41] VITALS: BP 159/102; PULSE 74; RESP 16; TEMP 37.3; O2SAT 98
[2022-11-10] MEDS: Ibuprofen 400 MG TABLET PO (21:14)
[2022-11-10] MEDS: Acetaminophen 325 MG TABLET 975 MG PO (21:14)
== END 2022-11-10 21:36 | disposition home or self-care (01) ==
PROVIDERS: Emergency Provider Student in an Organized Health Care Education/Training Program; PCP Internal Medicine
DX: M25.511 Pain in right shoulder (principal); M75.41 Impingement syndrome of right shoulder
CPT/HCPCS: 73030; 93005; 99283; 99284

== ENCOUNTER 2023-03-17 09:16 | Outpatient (AMB) | payer OTHER, SELFPAY ==
[2023-03-17 09:20] VITALS: BP 160/82; BMI 69.3
--- NOTE | 2023-03-17 09:20 | A.OFFPC_ITS ---
Vital Signs 03/17/23 09:20 03/17/23 09:52 Height 6 ft 1 in Weight 525 lb 9.312 oz BMI 69.3 BP 160/82 H 160/80 H Blood Pressure Location Lt brachial Lt brachial Position Sitting Sitting Intake Visit Reasons: Annual Exam Intake Note: Patient here for an annual physical exam Plate Conditioner Required: No Accompanied by: Self / Same As Patient Allergies No Known Allergies Allergy (Verified 03/17/23 09:35) Medication List - Last Reconciled 03/17/23 by Ana Maria Berg MD acetaminophen 1,000 mg (2 x 500 mg) PO Q6H PRN citalopram 40 mg PO DAILY gabapentin 600 mg PO Q8H 30 days ibuprofen 800 mg PO Q8H PRN 30 days lorazepam 0 mg PO tramadol 50 mg PO BID PRN 7 days trazodone 0 mg PO triamcinolone acetonide 0.5% 1 appl topical BID 30 days Tobacco use date assessed: 09/11/22 Dental Screening Dental Screen Date: 03/17/23 Did you have a dental visit in the last 12 months?: Yes Did you have a dental problem in the last 6 months where you did not have access to dental care?: No Was dental information given to patient?: Patient has dentist HPI HPI Comments History of Present Illness Details This is a 47-year-old male with mild major depression and super super obesity that comes for his physical exam. Depression stable with citalopram and this is follow by Psychiatry. He is super super obese with a BMI of 69.3 and declines weight loss surgery. Was advised to do intermittent fasting and to try to eat 6 forks of protein and 8 forks of vegetables. Has never had a colonoscopy and will prefer Cologuard. No high risk for colon cancer. Blood pressure elevated and I will start him on losartan and blood pressure will be recheck in 3 weeks by nurse navigator. [facility] Medical History (Updated 03/17/23 @ 09:41 by Ana Maria Berg MD) Daytime sleepiness Blurry vision COVID-19 Skin lesion Super-super obese Insomnia Depression with anxiety Surgical History No pertinent past surgical history Family History Father Diabetes Hypertension Paternal Grandmother Diabetes Mother Hypertension Social History Housing: Apartment Alcohol intake: never Patient Tobacco Use Status: Former Tobacco user Tobacco use type: Cigarette Years Smoked: 26 e-Cigarette/Vaping Use: Never Used Second Hand Smoke Exposure: No service: No Current occupational status: unemployed Cognitive needs: No Hearing needs: No Vision needs: No Questionnaire Thrive Questionnaire Date Thrive assessed: 09/11/22 KURT-7 AMB Questionnaire KURT-7 Date KURT - 7 assessed: 09/11/22 Source: Developed by Drs. Pradeep De Jesus, Cele Olivares, Pa Smith and colleagues, with an educational katherine from [employer]. Review of Systems Const All systems reviewed & are unremarkable except as noted in HPI and below Eyes Reports no additional complaints, Denies change in vision and Denies other visual disturbances Card Denies chest pain at rest, Denies chest pain with activity, Denies edema, Denies irregular heart rhythm, Denies claudication, Denies dyspnea, Denies dyspnea on exertion, Denies orthopnea, Denies paroxysmal nocturnal dyspnea and Denies slow heart rate Resp Denies cough, Denies dyspnea and Denies dyspnea on exertion GI Denies abdominal pain, Denies change in bowel habits, Denies excessive flatus, Denies nausea and Denies vomiting Denies urinary hesitancy, Denies urinary incontinence and Denies urinary urgency Musc Denies abnormal gait, Denies atrophy, Denies deformity and Denies limited range of motion Skin/Breast Denies bleeding lesions, Denies changing lesions and Denies rash Neuro Denies abnormal gait and Denies lack of coordination Physical exam (Primary Care) Vital Signs: Last Vital Signs BP 160/82 H 03/17/23 09:20 BMI result Body Mass Index 69.3 Tobacco/Smoking Status: Tobacco use Status Tobacco use date assessed 09/11/22 03/17/23 09:29 Patient Tobacco Use Status Former Tobacco user 03/17/23 09:29 Tobacco use type Cigarette 03/17/23 09:29 e-Cigarette/Vaping Use Never Used 03/17/23 09:29 Thrive Assessment: Date of Thrive Assessment Date Thrive assessed 09/11/22 03/17/23 09:29 Const Orientation/consciousness: patient oriented x3 HENMT Head: Yes normal to inspection, Yes normocephalic and Yes atraumatic Ears: external ears normal Eyes General: appearance normal, both eyes and all related structures Eyelids: Yes eyelids normal Conjunctivae: conjunctivae normal Neck Neck: Yes normal visual inspection and Yes supple Resp Effort & Inspection: normal respiratory effort Auscultation: clear to auscultation bilaterally Cardio Jugular venous distension: no JVD Rate: regular rate Rhythm: regular rhythm Heart sounds: S1 normal heart sound present and S2 normal heart sound present GI Inspection: Yes normal to inspection Palpation (GI): Soft to palpation and nontender Auscultation: normal bowel sounds Skin General skin exam: no rashes or lesions noted Neuro General: patient oriented x3 and no focal motor deficits Extrem General: Yes full ROM Psych Appearance: grossly normal Office Procedures Flu Questionnaire Does the patient have a severe egg allergy?: No Immunizations flu vacc [id number] 6mos up(PF) 60 mcg(15 mcgx4)/0.5 mL IM syringe Performing Provider: Ana Maria Berg MD [facility] Documented (not given) by: ALBERT Parisi on 03/17/23 09:30 Reason Not Given: Patient Refused Assessment and Plan Assessment & Plan (1) Adult general medical exam: Code(s): Z00.00 - Encounter for general adult medical examination without abnormal findings Plan: Repeat in a year. (2) Mild major depression: Code(s): F32.0 - Major depressive disorder, single episode, mild Plan: Continue citalopram. (3) Super-super obese: Comment: The BMI IS 64.9. PATIENT CURRENTLY ACTIVE IN WEIGHT MANAGEMENT PROGRAM. Code(s): E66.01 - Morbid (severe) obesity due to excess calories Plan: Intermittent fasting advise. BMI goal is less than 30. Declines weight loss surgery. Orders: Orders Comprehensive [place]. Panel Fast Today Z00.00 - Encounter for general adult m edical examination without abnormal findings Thyroid Stimulating Hormone Today E66.01 - Morbid (severe) obesity due to excess calories Influenza [id number] Immunization Today Z23 - Encounter for immunization Lipid Panel Today E78.5 - Hyperlipidemia, unspecified, Z00.00 - Encounter for general adult medical examination without abnormal findings Complete Blood Count Auto Diff Today E66.01 - Morbid (severe) obesity due to excess calories Referrals Cologuard Test Z12.11 - Encounter for screening for malignant neoplasm of colon, Z12.12 - Encounter for screening for malignant neoplasm of rectum Medications: New losartan 25 mg PO DAILY 90 days 90 tabs 1RF I10 - Essential (primary) hypertension Coding Level of Care Code Est Pt Prev Care 40-64y([id number]) Diagnoses Adult general medical exam Z00.00 Mild major depression F32.0 Super-super obese E66.01 Time Spent (min) 32
[2023-03-17 09:52] VITALS: BP 160/80
== END 2023-03-17 09:53 | disposition home or self-care (01) ==
PROVIDERS: PCP Nurse Practitioner Family; Visit Provider Internal Medicine
DX: Z00.00 Encounter for general adult medical examination without abnormal findings (principal); F32.0 Major depressive disorder, single episode, mild; E66.01 Morbid (severe) obesity due to excess calories; Z68.44 Body mass index [BMI] 60.0-69.9, adult
CPT/HCPCS: 99396

== ENCOUNTER 2023-07-03 13:00 | Outpatient (REF) | payer OTHER, SELFPAY ==
[2023-07-05 21:23] LABS: TS Negative Control Passed; TS Panel A 0; TS Panel B 0; TS Positive Control Passed; TSpotTB Negative (Negative)
== END 2023-07-03 13:01 | disposition home or self-care (01) ==
LOC: HO.LAB 13:00
PROVIDERS: PCP Internal Medicine; Visit Provider Internal Medicine
DX: Z11.1 Encounter for screening for respiratory tuberculosis (principal)
CPT/HCPCS: 36415; 86481

== ENCOUNTER 2023-07-20 06:25 | Outpatient (REF) | payer OTHER, SELFPAY ==
[2023-07-20 06:33] LABS: MANUAL DIFF FLAG NO
[2023-07-20 08:03] LABS: Basophils Absolute Auto 0.1 X10*3/uL (0.0-0.2); Basophils Percent Auto 0.7 % (0-2); Eosinophils Absolute Auto 0.2 X10*3/uL (0.0-0.4); Eosinophils Percent Auto 1.8 % (0-4); Hematocrit 43.6 % (42.0-52.0); Hemoglobin 13.4 g/dl (14.0-18.0); Imm Gran Abs Auto 0.07 X10*3/uL (0.00-0.03); Imm Gran Pct Auto 0.5 % (0.0-0.4); Lymphocytes Absolute Auto 3.1 X10*3/uL (1.2-4.9); Lymphocytes Percent Auto 23.9 % (20-40); Mean Corpuscular HGB Conc 30.7 g/dl (31.0-36.0); Mean Corpuscular Hemoglobin 26.7 pg (27.0-33.0); Mean Corpuscular Volume 86.9 fL (80.0-98.0); Mean Platelet Volume 10.4 fL (9.4-12.4); Monocytes Absolute Auto 0.7 X10*3/uL (0.1-1.2); Monocytes Percent Auto 5.6 % (2-11); Neutrophils Absolute Auto 8.6 x10*3/uL (2.0-8.3); Neutrophils Percent Auto 67.5 % (45-73); Platelet Count 290 X10*3/uL (160-400); Red Blood Count 5.02 X10*6/uL (4.60-5.80); Red Cell Distribution Width 13.4 % (11.0-16.0); White Blood Count 12.8 X10*3/uL (4.8-10.8)
[2023-07-20 08:37] LABS: Alanine Aminotransferase 19 U/L (0-40); Albumin Level 4.1 g/dL (3.5-5.0); Alkaline Phosphatase 56 U/L (39-117); Anion Gap 11 (12-20); Aspartate Amino Transferase 14 U/L (5-37); Bilirubin Total 0.5 mg/dL (0.0-1.0); Blood Urea Nitrogen 14 mg/dL (9-16); Calcium 9.2 mg/dL (8.4-10.2); Carbon Dioxide 29 mmol/L (22-29); Chloride 101 mmol/L (96-108); Cholesterol 162 mg/dL (<200); Estimated Glomerular Filt Rate > 60; Glucose Fasting 101 mg/dL (60-99); HDL Cholesterol 41 mg/dL (>40); LDL Cholesterol Calculated 105 mg/dL (<100); Potassium 4.1 mmol/L (3.3-5.1); Sodium 137 mmol/L (135-145); Total Protein 7.9 g/dL (6.5-8.0); Triglycerides 84 mg/dL (<150)
[2023-07-20 08:56] LABS: Vitamin D 25-OH Total 7.3 ng/mL (>30)
== END 2023-07-20 06:26 | disposition home or self-care (01) ==
LOC: HO.LAB 06:25
PROVIDERS: PCP Internal Medicine; Visit Provider Internal Medicine
DX: Z00.00 Encounter for general adult medical examination without abnormal findings (principal); E55.9 Vitamin D deficiency, unspecified; G47.30 Sleep apnea, unspecified; E78.5 Hyperlipidemia, unspecified; E66.01 Morbid (severe) obesity due to excess calories
CPT/HCPCS: 36415; 80053; 80061; 82306; 84443; 85025

== ENCOUNTER 2023-07-20 14:37 | Outpatient (AMB) | payer OTHER, SELFPAY ==
[2023-07-20 14:38] VITALS: BP 150/72; PULSE 87; O2SAT 94; BMI 68.1
--- NOTE | 2023-07-20 14:38 | MHC.PC.OV ---
Vital Signs 07/20/23 14:38 Height 6 ft 1 in Weight 515 lb 14.107 oz BMI 68.1 BP 150/72 H Blood Pressure Location Lt radial Position Sitting Pulse 87 Pulse Source Pulse Oximeter Pulse Oximetry (%) 94 Oxygen Delivery Method Room Air Intake Visit Reasons: bp Outreach Director Required: No Accompanied by: Self / Same As Patient Allergies No Known Allergies Allergy (Verified 07/20/23 15:01) Medication List - Last Reconciled 07/20/23 by Ana Maria Berg MD acetaminophen 1,000 mg (2 x 500 mg) PO Q6H PRN citalopram 40 mg PO DAILY gabapentin 600 mg PO Q8H 30 days ibuprofen 800 mg PO Q8H PRN 30 days losartan 25 mg PO DAILY 90 days tramadol 50 mg PO BID PRN 7 days triamcinolone acetonide 0.5% 1 appl topical BID 30 days Tobacco use date assessed: 07/20/23 Dental Screening Dental Screen Date: 07/20/23 Did you have a dental visit in the last 12 months?: No Did you have a dental problem in the last 6 months where you did not have access to dental care?: No Was dental information given to patient?: Patient has dentist HPI HPI Comments History of Present Illness Details This is a 48-year-old male with hypertension, mild major depression follow by Psychiatry, super super obesity and low vitamin-D that comes today for follow-up on his conditions. Blood pressure elevated and will be recheck in 3 weeks by nurse navigator. Has run out of losartan for over a week. Denies chest pain or shortness of breath. Depression has been stable with citalopram and this is follow by Psychiatry. He is super super obese with a BMI of 68.1 and has pain in weight management twice but has not able to lose the way. He will try [facility] weight management now. Vitamin-D is low and supplements will be order. [facility] Medical History Morbid obesity Daytime sleepiness Blurry vision COVID-19 Skin lesion Super-super obese Insomnia Depression with anxiety Surgical History No pertinent past surgical history Family History Father Diabetes Hypertension Paternal Grandmother Diabetes Mother Hypertension Social History Housing: Apartment Alcohol intake: never Patient Tobacco Use Status: Former Tobacco user Tobacco use type: Cigarette Years Smoked: 26 e-Cigarette/Vaping Use: Never Used Second Hand Smoke Exposure: No service: No Current occupational status: unemployed Cognitive needs: No Hearing needs: No Vision needs: No Questionnaire PHQ-9 Over the last 2 weeks, how often have you been bothered by any of the following problems? 1. Little interest or pleasure in doing things: not at all 2. Feeling down, depressed, or hopeless: not at all 3. Trouble falling or staying asleep, or sleeping too much: not at all 4. Feeling tired or having little energy: not at all 5. Poor appetite or overeating: not at all 6. Feeling bad about yourself - or that you are a failure or have let yourself or your family down: not at all 7. Trouble concentrating on things, such as reading the newspaper or watching television: not at all 8. Moving or speaking so slowly that other people could have noticed. Or the opposite - being so fidgety or restless that you have been moving around a lot more than usual: not at all 9. Thoughts that you would be better off or of hurting yourself in some way: not at all Total score: 0 Depression Screening Interpretation: Negative Depression Screening Done: Yes 50826 - PHQ-9 Billing: Yes Source: Developed by Drs. Pradeep De Jesus, Cele Olivares, Pa Smith and colleagues, with an educational katherine from [employer]. Thrive Questionnaire Date Thrive assessed: 07/20/23 I am a: Patient What is your living situation today?: I have a steady place to live Within the past 12 months, did the food you bought not last and you didn't have the money to get more?: Never true Within the past 12 months, did you worry whether your food would run out before you got money to buy more?: Never true Do you have trouble paying for medicines?: No Do you have trouble getting transportation to medical appointments?: No Do you have trouble paying your heating and electricity bill?: No Do you have trouble taking care of your child, family member or friend?: No Do you have trouble with day-to-day activities such as bathing, preparing meals, shopping, managing finances, etc.?: No Are you currently unemployed and looking for a job?: No Are you interested in more education?: No Please select the resources that you would like help with: None Currently or been in a relationship where the following occur: no concerns reported THRIVE Score: 0 AUDIT C Alcohol Use Questionnaire (AUDIT-C) 1. How often do you have a drink containing alcohol?: Never 3. How often do you have six or more drinks on one occasion?: Never Total Score: 0 Score Reviewed/Action Taken: No KURT-7 AMB Questionnaire KURT-7 Date KURT - 7 assessed: 07/20/23 Feeling nervous, anxious, or on edge: 0 = Not at all Not being able to stop or control worryin = Nearly every day Worrying too much about different things: 0 = Not at all Trouble relaxin = Not at all Being so restless that it is hard to sit still: 0 = Not at all Becoming easily annoyed or irritable: 0 = Not at all Feeling afraid as if something awful might happen: 0 = Not at all Total KURT-7 score (0-4 normal; 5-9 mild; 10-14 moderate; 15-21 severe): 3 Source: Developed by Drs. Pradeep De Jesus, Cele Olivares, Pa Smith and colleagues, with an educational katherine from [employer]. KURT-7 Assessment Billing KURT-7 Assessment Tool: KURT-7 Assessment 57078 Review of Systems Const All systems reviewed & are unremarkable except as noted in HPI and below Eyes Reports no additional complaints, Denies change in vision and Denies other visual disturbances Card Denies chest pain at rest, Denies chest pain with activity, Denies edema, Denies irregular heart rhythm, Denies claudication, Denies dyspnea, Denies dyspnea on exertion, Denies orthopnea, Denies paroxysmal nocturnal dyspnea and Denies slow heart rate Resp Denies cough, Denies dyspnea and Denies dyspnea on exertion Physical exam (Primary Care) Vital Signs: Last Vital Signs Pulse 87 07/20/23 14:38 BP 150/72 H 07/20/23 14:38 Pulse Ox 94 07/20/23 14:38 Oxygen Delivery Method Room Air 07/20/23 14:38 BMI result Body Mass Index 68.1 Tobacco/Smoking Status: Tobacco use Status Tobacco use date assessed 07/20/23 07/20/23 14:49 Patient Tobacco Use Status Former Tobacco user 07/20/23 14:40 Tobacco use type Cigarette 07/20/23 14:40 e-Cigarette/Vaping Use Never Used 07/20/23 14:40 PHQ-9: PHQ-9 Score PHQ-9: Total score 0 07/20/23 14:49 Depression Screening Interpretation: Negative Thrive Assessment: Date of Thrive Assessment Date Thrive assessed 07/20/23 07/20/23 14:49 Currently or been in a relationship where the following occur: no concerns reported Resp Effort & Inspection: normal respiratory effort Auscultation: clear to auscultation bilaterally Cardio Jugular venous distension: no JVD Rate: regular rate Rhythm: regular rhythm Heart sounds: S1 normal heart sound present and S2 normal heart sound present Extrem General: Yes full ROM Assessment and Plan Assessment & Plan (1) Essential hypertension: Code(s): I10 - Essential (primary) hypertension Plan: Restart losartan. Blood pressure goal is equal or less than 130/80. Recheck blood pressure with nurse navigator in 3 weeks. (2) Mild major depression: Code(s): F32.0 - Major depressive disorder, single episode, mild Plan: Continue citalopram. Follow-up with psychiatry. (3) TSH elevation: Code(s): R79.89 - Other specified abnormal findings of blood chemistry Plan: Repeat TSH. (4) Low vitamin D level: Code(s): R79.89 - Other specified abnormal findings of blood chemistry Plan: Start vitamin-D supplements. (5) Super-super obese: Comment: The BMI IS 64.9. PATIENT CURRENTLY ACTIVE IN WEIGHT MANAGEMENT PROGRAM. Code(s): E66.01 - Morbid (severe) obesity due to excess calories Plan: Was advised to try [facility] weight management. BMI goal is less than 30. Orders: Orders Thyroid Stimulating Hormone 5 Weeks R79.89 - Other specified abnormal findings of blood chemistry Medications: New cholecalciferol (vitamin D3) 50 mcg PO DAILY 90 days 90 caps 1RF Refilled losartan 25 mg PO DAILY 90 days 90 tabs 1RF I10 - Essential (primary) hypertension Discontinued tramadol Discontinued Reason: Patient Completed Course 50 mg PO BID 7 days PRN 14 tabs 0RF pain Coding Level of Care Code Est Pt Level 4 (47186) Diagnoses Essential hypertension I10 Mild major depression F32.0 TSH elevation R79.89 Low vitamin D level R79.89 Super-super obese E66.01 Additional Codes KURT-7 Assessment Billing - KURT-7 Assessment Tool: KURT-7 Assessment 24543 ([id number]) Time Spent (min) 22
== END 2023-07-20 15:12 | disposition home or self-care (01) ==
LOC: HO.HMGH 14:38
PROVIDERS: PCP Internal Medicine; Visit Provider Internal Medicine
DX: I10 Essential (primary) hypertension (principal); F33.0 Major depressive disorder, recurrent, mild; E66.01 Morbid (severe) obesity due to excess calories; Z68.44 Body mass index [BMI] 60.0-69.9, adult
CPT/HCPCS: 99214

== ENCOUNTER → 2023-08-25 09:17 | Outpatient (BNVA) | payer OTHER, SELFPAY | PROVIDERS: PCP Internal Medicine; Visit Provider Physician Assistant Surgical ==

== ENCOUNTER 2023-10-14 13:10 | Outpatient (AMB) | payer OTHER, SELFPAY ==
--- NOTE | 2023-10-14 13:39 | MHC.OFFVISWM ---
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 He is attempting to reestablish care within our preoperative surgical weight loss program. He was seen in the office from May through 01/16/2022. He had lost approximately 23 lb at that time. Weight today is 523.8 lb with a BMI of 69.1. He states that he left the program because he was not ready to commit to weight loss in surgery. He states that he has now completely committed to improving his life. He did find out that he now has sleep apnea and uses a CPAP machine at night. He additionally has blood pressure issues and his family has been very concerned for him. He is now committed to his health and improving his outcome Meal plan: none Exercise plan: none PFSH Medical History (Updated 10/14/23 @ 14:16 by JORDAN Jason) Morbid obesity Daytime sleepiness Blurry vision COVID-19 Skin lesion Super-super obese Insomnia Depression with anxiety Surgical History No pertinent past surgical history Family History Father Diabetes Hypertension Paternal Grandmother Diabetes Mother Hypertension Social History Housing: Apartment Alcohol intake: never Patient Tobacco Use Status: Former Tobacco user Tobacco use type: Cigarette Years Smoked: 26 e-Cigarette/Vaping Use: Never Used Second Hand Smoke Exposure: No service: No Current occupational status: unemployed Cognitive needs: No Hearing needs: No Vision needs: No Physical Exam Vital Signs: Last Vital Signs Temp 97.4 F 10/14/23 13:45 Pulse 86 10/14/23 13:45 BP 134/76 10/14/23 13:45 Pulse Ox 94 10/14/23 13:45 Oxygen Delivery Method Room Air 10/14/23 13:45 BMI result Body Mass Index 69.1 Const General: healthy appearing and no acute distress Resp Effort & Inspection: normal respiratory effort Auscultation: clear to auscultation bilaterally Cardio Rate: regular rate Rhythm: regular rhythm GI Auscultation: normal bowel sounds Extrem General: Yes normal to inspection Assessment & Plan Assessment & Plan (1) Morbid obesity: Code(s): E66.01 - Morbid (severe) obesity due to excess calories Category: Medical Plan 1. You have been given a paper with a link to our software masoud ([employer]) to generate an individualized nutritional and exercise plan specific for you. Please send me a screenshot of the plans you will generate Meal to include lean meat (beef, fish, pork, turkey, chicken), or hungarian yogurt, or egg whites, or beans with a salad with olive oil and fruits (berries, pears, apples, kiwi). Avoid salt, breads, potatoes, rice, pasta, desserts. 2. If you choose shakes, each shake would be drunk slowly, like coffee over a period of 2 hours. 3. If you choose bars, cut each bar in 4 pieces and eat each piece in 30min to make each bar last 2 hours. 4. I emphasized the importance of measuring accurately the food portion and measure it when serving the food on a plate 5. The meal portions include a specific number of forks of meat (protein) and salad. You always eat the meat portion but you can replace up to half of salad/vegetables portion with rice, potatoes or pasta, or a fruit ?if you like. The less you do it the better weight loss will be. 6. One full-size fork is what it can be scooped on the fork without falling aside and not what can be bit with the fork. Use regular forks like those you find in a typical restaurant. 7.? Please send me weight measurements from your body composition scale as soon as possible and then once a week. Always include your diet and exercise plan. The best time to weigh yourself is first thing in the morning after going to the bathroom. 8. The best choice for exercise would be walking outside 5 minutes out and 5 minutes back, 3-4 times per day. Additionally, try to increase the time by 1-2 minutes every couple of days. I have given you a discount paper to join the [employer] in [place]. Consider walking in the pool in the shallow end for 5-10 minutes per day, more if you are able. 9.?Goal is to lose at least 1.5-2lbs per week. Goal is to lose approximately 140 lb before surgery 10. Please follow the diet plan exactly without any change. If you don't like something about the plan or you feel hungry you need to communicate with me so I can help you revise the plan. My cell phone number to communicate with me by text is [phone]
[2023-10-14 13:45] VITALS: BP 134/76; PULSE 86; TEMP 36.3; O2SAT 94; BMI 69.1
== END 2023-10-14 14:15 | disposition home or self-care (01) ==
PROVIDERS: PCP Internal Medicine; Visit Provider Physician Assistant Surgical
DX: E66.01 Morbid (severe) obesity due to excess calories (principal)
CPT/HCPCS: 99214

== ENCOUNTER → 2023-10-14 13:10 | Outpatient (BNVA) | payer OTHER, SELFPAY | PROVIDERS: PCP Internal Medicine; Visit Provider Physician Assistant Surgical | DX: E66.01 Morbid (severe) obesity due to excess calories (principal); G47.33 Obstructive sleep apnea (adult) (pediatric); Z71.3 Dietary counseling and surveillance; Z99.89 Dependence on other enabling machines and devices; Z68.54 Body mass index [BMI] pediatric, 95th percentile for age to less than 120% of the 95th percentile for age | CPT/HCPCS: 99212 ==

== ENCOUNTER → 2023-10-28 11:31 | Outpatient (BNVA) | payer OTHER, SELFPAY | PROVIDERS: PCP Internal Medicine; Visit Provider Physician Assistant Surgical ==

== ENCOUNTER 2023-11-11 11:31 | Outpatient (AMB) | payer OTHER, SELFPAY ==
--- NOTE | 2023-11-11 11:38 | A.OFFVIS_ITS ---
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 He was last seen in the office on 10/14/2023 to reestablish care. At that time, his weight was 523.8 lb with a BMI of 69.1. Weight today is 513.6 lb with a BMI of 67.8. He has lost 10.2 lb or 1.9% total body weight loss. He states that he has increased his walking from 6 minutes up to 22 minutes per day. He feels better overall. He can now touch his shoes without difficulty. Overall, he is satisfied with his current progress although is excited to continue to improve. He is using the new masoud for his meal plan meal plan: premier protein 2 scoops in 10 oz almond milk, 9 another shake rtd, noon, 3 meal 13 forks protein and 13 forks veg shake, 8, 11 exercise walking outside 22 min daily, up from 6 min [facility] Medical History (Updated 10/14/23 @ 14:16 by JORDAN Jason) Morbid obesity Daytime sleepiness Blurry vision COVID-19 Skin lesion Super-super obese Insomnia Depression with anxiety Surgical History No pertinent past surgical history Family History Father Diabetes Hypertension Paternal Grandmother Diabetes Mother Hypertension Social History Housing: Apartment Alcohol intake: never Patient Tobacco Use Status: Former Tobacco user Tobacco use type: Cigarette Years Smoked: 26 e-Cigarette/Vaping Use: Never Used Second Hand Smoke Exposure: No service: No Current occupational status: unemployed Cognitive needs: No Hearing needs: No Vision needs: No Physical Exam Const General: healthy appearing and no acute distress Resp Effort & Inspection: normal respiratory effort Auscultation: clear to auscultation bilaterally Cardio Rate: regular rate Rhythm: regular rhythm GI Auscultation: normal bowel sounds Extrem General: Yes normal to inspection Assessment & Plan Assessment & Plan (1) Morbid obesity: Code(s): E66.01 - Morbid (severe) obesity due to excess calories Category: Medical Plan: Patient is following the meal plan. He has made progress in that he has removed pasta and rice and bread. He is walking greater distances. He is committed to the program and we will continue. We will have him return to the office in approximately 1 month.
[2023-11-11 11:43] VITALS: BP 145/87; PULSE 86; TEMP 36.2; O2SAT 92; BMI 67.8
== END 2023-11-11 11:59 | disposition home or self-care (01) ==
PROVIDERS: PCP Internal Medicine; Visit Provider Physician Assistant Surgical
DX: E66.01 Morbid (severe) obesity due to excess calories (principal)
CPT/HCPCS: 99213

== ENCOUNTER → 2023-11-11 11:31 | Outpatient (BNVA) | payer OTHER, SELFPAY | PROVIDERS: PCP Internal Medicine; Visit Provider Physician Assistant Surgical | DX: E66.01 Morbid (severe) obesity due to excess calories (principal); Z71.3 Dietary counseling and surveillance; Z68.44 Body mass index [BMI] 60.0-69.9, adult | CPT/HCPCS: 99212 ==

== ENCOUNTER 2023-11-26 14:34 | Outpatient (AMB) | payer OTHER, SELFPAY ==
[2023-11-26 14:39] VITALS: BP 136/88; BMI 67.6
--- NOTE | 2023-11-26 14:39 | MHC.PC.OV ---
Vital Signs 11/26/23 14:39 Height 6 ft 1 in Weight 512 lb 5.668 oz BMI 67.6 BP 136/88 Blood Pressure Location Lt brachial Position Sitting Intake Visit Reasons: BP Intake Note: Patient here for a follow up BP Electro Plater Required: No Accompanied by: Self / Same As Patient Allergies No Known Allergies Allergy (Verified 11/26/23 15:09) Medication List - Last Reconciled 11/26/23 by Ana Maria Berg MD cholecalciferol (vitamin D3) 50 mcg PO DAILY 90 days citalopram 40 mg PO DAILY gabapentin 600 mg PO Q8H 30 days losartan 25 mg PO DAILY 90 days triamcinolone acetonide 0.5% 1 appl topical BID 30 days Tobacco use date assessed: 07/20/23 Dental Screening Dental Screen Date: 07/20/23 HPI HPI Comments History of Present Illness Details This is a 48-year-old male with hypertension, mild major depression, super super obesity and low vitamin-D that comes today for follow-up on his conditions. Blood pressure stable. Depression well controlled with medications. On vitamin-D supplements for his low vitamin-D. He has a BMI of 67.6 and is enroll in weight management. Needs to lose about 90 lb to have weight loss surgery. I will start him on Wegovy for his obesity. He has tried diet and exercise with no improvement. [facility] Medical History Morbid obesity Daytime sleepiness Blurry vision COVID-19 Skin lesion Super-super obese Insomnia Depression with anxiety Surgical History No pertinent past surgical history Family History Father Diabetes Hypertension Paternal Grandmother Diabetes Mother Hypertension Social History (Updated 11/26/23 @ 15:11 by Ana Maria Berg MD) Housing: Apartment Alcohol intake: former Patient Tobacco Use Status: Former Tobacco user Tobacco use type: Cigarette Years Smoked: 26 e-Cigarette/Vaping Use: Never Used Second Hand Smoke Exposure: No service: No Current occupational status: unemployed Cognitive needs: No Hearing needs: No Vision needs: No Questionnaire Thrive Questionnaire Date Thrive assessed: 07/20/23 KURT-7 AMB Questionnaire KURT-7 Date KURT - 7 assessed: 07/20/23 Source: Developed by Drs. Pradeep De Jesus, Cele Olivares, Pa Smith and colleagues, with an educational katherine from [employer]. Review of Systems Const All systems reviewed & are unremarkable except as noted in HPI and below Card Denies chest pain at rest, Denies chest pain with activity, Denies edema, Denies irregular heart rhythm, Denies claudication, Denies dyspnea, Denies dyspnea on exertion, Denies orthopnea, Denies paroxysmal nocturnal dyspnea and Denies slow heart rate Resp Denies cough, Denies dyspnea and Denies dyspnea on exertion GI Denies abdominal pain, Denies change in bowel habits, Denies excessive flatus, Denies nausea and Denies vomiting Denies urinary hesitancy, Denies urinary incontinence and Denies urinary urgency Musc Denies atrophy, Denies deformity and Denies limited range of motion Skin/Breast Denies bleeding lesions, Denies changing lesions and Denies rash Physical exam (Primary Care) Vital Signs: Last Vital Signs BP 136/88 11/26/23 14:39 BMI result Body Mass Index 67.6 BMI Assessment/Plan discussion: High BMI High, discussed plan: lifestyle, weight reduction, dietary and physical activity Tobacco/Smoking Status: Tobacco use Status Tobacco use date assessed 07/20/23 11/26/23 14:42 Patient Tobacco Use Status Former Tobacco user 11/26/23 15:11 Tobacco use type Cigarette 11/26/23 15:11 e-Cigarette/Vaping Use Never Used 11/26/23 15:11 Thrive Assessment: Date of Thrive Assessment Date Thrive assessed 07/20/23 11/26/23 14:42 Resp Effort & Inspection: normal respiratory effort Auscultation: clear to auscultation bilaterally Cardio Jugular venous distension: no JVD Rate: regular rate Rhythm: regular rhythm Heart sounds: S1 normal heart sound present and S2 normal heart sound present Extrem General: Yes full ROM Assessment and Plan Assessment & Plan (1) Mild major depression: Code(s): F32.0 - Major depressive disorder, single episode, mild Plan: Continue citalopram. (2) Super-super obese: Comment: The BMI IS 64.9. PATIENT CURRENTLY ACTIVE IN WEIGHT MANAGEMENT PROGRAM. Code(s): E66.01 - Morbid (severe) obesity due to excess calories Plan: Start Wegovy. Continue follow-up with weight management. BMI goal is less than 30. (3) Essential hypertension: Code(s): I10 - Essential (primary) hypertension Plan: Continue losartan. Blood pressure goal is equal or less than 130/80. (4) Low vitamin D level: Code(s): R79.89 - Other specified abnormal findings of blood chemistry Plan: Continue vitamin-D supplements. Orders: Orders Vitamin D 25-OH Total 4 Months E55.9 - Vitamin D deficiency, unspecified Comprehensive [place]. Panel Fast 4 Months E66.01 - Morbid (severe) obesity due to excess calories Thyroid Stimulating Hormone 4 Months R79.89 - Other specified abnormal findings of blood chemistry Free T4 (Free Thyroxine) 4 Months R79.89 - Other specified abnormal findings of blood chemistry Lipid Panel 4 Months E66.01 - Morbid (severe) obesity due to excess calories, E78.5 - Hyperlipidemia, unspecified Medications: New semaglutide (weight loss) (Wegovy) administer weeks 1 through 4 of therapy 0.25 mg (0.5 mL) subcut QWEEK 2 mL 0RF 4 weeks E66.01 - Morbid (severe) obesity due to excess calories Refilled gabapentin 600 mg PO Q8H 90 tabs 6RF 30 days triamcinolone acetonide 0.5% 1 appl topical BID 30 grams 0RF 30 days Coding Level of Care Code Est Pt Level 4 (66592) Complex EM visit Add On G2211 Diagnoses Mild major depression F32.0 Super-super obese E66.01 Essential hypertension I10 Low vitamin D level R79.89 Time Spent (min) 22
== END 2023-11-26 15:16 | disposition home or self-care (01) ==
PROVIDERS: PCP Internal Medicine; Visit Provider Internal Medicine
DX: F32.0 Major depressive disorder, single episode, mild (principal); E66.01 Morbid (severe) obesity due to excess calories; Z68.44 Body mass index [BMI] 60.0-69.9, adult; I10 Essential (primary) hypertension; R79.89 Other specified abnormal findings of blood chemistry
CPT/HCPCS: 99214; G2211

== ENCOUNTER → 2023-11-27 09:56 | Outpatient (BNVA) | payer OTHER, SELFPAY | PROVIDERS: PCP Internal Medicine; Visit Provider Physician Assistant Surgical ==

== ENCOUNTER 2024-01-04 12:43 | Outpatient (AMB) | payer OTHER, SELFPAY ==
--- NOTE | 2024-01-04 12:45 | A.OFFVIS_ITS ---
VS Expanded 01/04/24 12:52 BP 139/81 Blood Pressure Location Rt brachial Blood Pressure Position Sitting Pulse 88 Pulse Source Pulse Oximeter Temp 96.8 F Temperature Source Temporal Artery Scan Pulse Oximetry 92 Oxygen Delivery Method Room Air Height 6 ft 1 in Weight 501 lb 12.8 oz BMI 66.2 Body Fat % 53.0 Body Fat Mass 265.8 Fat Free Mass 235.8 Visceral Fat Rating 48.0 Body Water % 34.2 Body Water Mass 171.8 Muscle Mass/Score 224.4 Basal Metabolic Rate/Score 3,636 Intake Visit Reasons: (OV) F/U SWL Allergies No Known Allergies Allergy (Verified 01/04/24 12:46) HPI Comments Details: Patient is a pleasant 48-year-old male who returns to the office today in follow-up. He was first seen in the office on 10/14/2023 to reestablish care. At that time, his weight was 523.8 lb with a BMI of 69.1. Weight today is 501.8 lb with a BMI of 66.2. He has lost 22 lb or 4.2% total body weight loss. He states that he has increased his walking from 22 minutes to 25 minutes per day. He feels better overall. He can now touch his shoes without difficulty. Overall, he is satisfied with his current progress although is excited to continue to improve. He is using the new masoud for his meal plan. He states he has not been able to get the shakes as he had his rent increased. He has not had shakes in 4 days meal plan: premier protein 2 scoops in 10 oz almond milk, 9 another shake rtd, noon, 3 meal 13 forks protein and 13 forks veg shake, 8, 11 exercise walking outside 25 min daily, up from 6 min [facility] Medical History Morbid obesity Daytime sleepiness Blurry vision COVID-19 Skin lesion Super-super obese Insomnia Depression with anxiety Surgical History No pertinent past surgical history Family History Father Diabetes Hypertension Paternal Grandmother Diabetes Mother Hypertension Social History Housing: Apartment Alcohol intake: former Patient Tobacco Use Status: Former Tobacco user Tobacco use type: Cigarette Years Smoked: 26 e-Cigarette/Vaping Use: Never Used Second Hand Smoke Exposure: No service: No Current occupational status: unemployed Cognitive needs: No Hearing needs: No Vision needs: No Physical Exam Vital Signs: Last Vital Signs Temp 96.8 F 01/04/24 12:52 Pulse 88 01/04/24 12:52 BP 139/81 01/04/24 12:52 Pulse Ox 92 01/04/24 12:52 Oxygen Delivery Method Room Air 01/04/24 12:52 BMI result Body Mass Index 66.2 Const General: healthy appearing and no acute distress Resp Effort & Inspection: normal respiratory effort Auscultation: clear to auscultation bilaterally Cardio Rate: regular rate Rhythm: regular rhythm GI Auscultation: normal bowel sounds Extrem General: Yes normal to inspection Assessment & Plan Assessment & Plan (1) Morbid obesity: Code(s): E66.01 - Morbid (severe) obesity due to excess calories Category: Medical Plan: We will change meal plans slightly, he will use ensure plus ready to drink. Ensure plus ready to drink, 9 another shake rtd, noon, 3 meal 13 forks protein and 13 forks veg shake, 8 For shakes total and a meal. He was encouraged to increase his walking to 25 minutes everyday, 7 days a week, ultimately increasing to 30 minutes per day. He certainly has made improvements up from 6 minutes per day. We will have him return to the office in approximately 3-4 weeks
[2024-01-04 12:52] VITALS: BP 139/81; PULSE 88; TEMP 36; O2SAT 92; BMI 66.2
== END 2024-01-04 13:13 | disposition home or self-care (01) ==
PROVIDERS: PCP Internal Medicine; Visit Provider Physician Assistant Surgical
DX: E66.01 Morbid (severe) obesity due to excess calories (principal)
CPT/HCPCS: 99213

== ENCOUNTER → 2024-01-04 12:43 | Outpatient (BNVA) | payer OTHER, SELFPAY | PROVIDERS: PCP Internal Medicine; Visit Provider Physician Assistant Surgical | DX: E66.01 Morbid (severe) obesity due to excess calories (principal); Z68.44 Body mass index [BMI] 60.0-69.9, adult | CPT/HCPCS: 99212 ==

== ENCOUNTER → 2024-01-18 08:27 | Outpatient (BNVA) | payer OTHER, SELFPAY | PROVIDERS: PCP Internal Medicine; Visit Provider Physician Assistant Surgical ==

== ENCOUNTER 2024-02-08 13:26 | Outpatient (AMB) | payer OTHER, SELFPAY ==
--- NOTE | 2024-02-08 13:47 | MHC.OFFVISWM ---
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 He was first seen in the office on 10/14/2023 to reestablish care. At that time, his weight was 523.8 lb with a BMI of 69.1. Weight today is 489.2 lb with a BMI of 64.5. He has lost 34.6 lb or 6.6% total body weight loss. He states that he has increased his walking from 22 minutes to 25 minutes per day. He feels better overall. He can now touch his shoes without difficulty. Overall, he is satisfied with his current progress although is excited to continue to improve. He is using the new masoud for his meal plan. He states he has not been able to get the shakes as he had his rent increased. He has not had shakes in 4 days Complains of constipation. Last bowel movement was yesterday although very difficult to pass. He does have senna although has been taking 1 tablet at night. He also has access to MiraLax at home. meal plan: premier protein 2 scoops in 10 oz almond milk, 9 another shake rtd, noon, 3 meal 13 forks protein and 13 forks veg shake, 8, 11 exercise walking outside 28 min daily, up from 6 min [facility] Medical History Morbid obesity Daytime sleepiness Blurry vision COVID-19 Skin lesion Super-super obese Insomnia Depression with anxiety Surgical History No pertinent past surgical history Family History Father Diabetes Hypertension Paternal Grandmother Diabetes Mother Hypertension Social History Housing: Apartment Alcohol intake: former Patient Tobacco Use Status: Former Tobacco user Tobacco use type: Cigarette Years Smoked: 26 e-Cigarette/Vaping Use: Never Used Second Hand Smoke Exposure: No service: No Current occupational status: unemployed Cognitive needs: No Hearing needs: No Vision needs: No Physical Exam Const General: healthy appearing and no acute distress Resp Effort & Inspection: normal respiratory effort Auscultation: clear to auscultation bilaterally Cardio Rate: regular rate Rhythm: regular rhythm GI Auscultation: normal bowel sounds Extrem General: Yes normal to inspection Assessment & Plan Assessment & Plan (1) Morbid obesity: Code(s): E66.01 - Morbid (severe) obesity due to excess calories Category: Medical Plan: Patient is making progress. Encouraged to continue to follow the meal plan as outlined from the right BMI masoud. encouraged to increase his exercise by 2 minutes per day every day. He certainly has made progress, now able to walk 28 minutes up from 6 minutes. We will have him follow-up with Dr. Catalan. Encouraged to continue to text with any questions or concerns. He comes into the office weekly for his weight checks
[2024-02-08 14:00] VITALS: BP 164/82; PULSE 87; TEMP 36.1; O2SAT 95; BMI 64.5
== END 2024-02-08 14:16 | disposition home or self-care (01) ==
PROVIDERS: PCP Internal Medicine; Visit Provider Physician Assistant Surgical
DX: E66.01 Morbid (severe) obesity due to excess calories (principal)
CPT/HCPCS: 99213

== ENCOUNTER → 2024-02-08 13:26 | Outpatient (BNVA) | payer OTHER, SELFPAY | PROVIDERS: PCP Internal Medicine; Visit Provider Physician Assistant Surgical | DX: E66.01 Morbid (severe) obesity due to excess calories (principal); Z68.44 Body mass index [BMI] 60.0-69.9, adult | CPT/HCPCS: 99212 ==

== ENCOUNTER 2024-02-29 07:56 | Outpatient (AMB) | payer OTHER, SELFPAY ==
[2024-02-29 11:14] VITALS: BMI 64.5
--- NOTE | 2024-02-29 11:14 | A.OFFVIS_ITS ---
VS Expanded 02/29/24 11:14 Height 6 ft 1 in Weight 489 lb 2 oz BMI 64.5 Body Fat % 56.1 Body Fat Mass 274.2 Fat Free Mass 214.8 Visceral Fat Rating 50 Body Water % 34.2 Body Water Mass 167.2 Basal Metabolic Rate/Score 3,313 Intake Visit Reasons: TV Follow Up SWL/Consult Amadeo Allergies No Known Allergies Allergy (Verified 02/08/24 13:48) HPI HPI TV Follow Up SWL/Consult Amadeo: Details: Start time: 11am, End time: 11.36am ?I spent 31 minutes speaking with the patient on the phone plus an additional 5 minutes reviewing and updating records for a total of 36 minutes HPI Comments Details: Overall weight loss: 34.6lbs, or 6.61% TBWL Is doing 5 powdered Premier shake (1 scoop water or skim milk) and one meal (13 forks of protein and 13 forks of salad or vegetables). Exercise: walks outside 3-4 days for 30 minutes PFSH Medical History Morbid obesity Daytime sleepiness Blurry vision COVID-19 Skin lesion Super-super obese Insomnia Depression with anxiety Surgical History No pertinent past surgical history Family History Father Diabetes Hypertension Paternal Grandmother Diabetes Mother Hypertension Social History Housing: Apartment Alcohol intake: former Patient Tobacco Use Status: Former Tobacco user Tobacco use type: Cigarette Years Smoked: 26 e-Cigarette/Vaping Use: Never Used Second Hand Smoke Exposure: No service: No Current occupational status: unemployed Cognitive needs: No Hearing needs: No Vision needs: No Physical Exam Vital Signs: BMI result Body Mass Index 64.5 Telehealth Telehealth Telehealth Platform: Telephone Location of provider rendering services: practice address Location of patient: address on file Patient Identification confirmed using: Name, : Yes Telehealth method: voice only Patient verbally consented to treatment: Yes Patient verbally consented to billing insurance company: Yes Patient informed of any privacy concerns related to visit: Yes Minutes spent on Phone/Video with Pt.: 36 Assessment & Plan Assessment & Plan (1) Morbid obesity: Code(s): E66.01 - Morbid (severe) obesity due to excess calories Category: Medical Plan: 1. Please send me screenshots of your meal plan you use through the [employer] masoud. If you switch from milk to water, you need to create a separate meal plan with the masoud. You cannot simply replace the water with milk and vice versa. 2. Create an exercise plan through the [employer] masoud and send me a screenshot of that as well 3. Please read carefully the meal and exercise plan you create and follow them to the letter. You should not modify the plans yourself in any way 4. Come to the office for weight checks weekly or biweekly. It is your responsibility to send me a picture of the measurement 5. As of today please send me a picture of your meal plate after you measure it but before you eat it. 6. Try the Fit Crunch and Atkins bars and if you like them, create a new meal plan incorporating bars into your meal plan.
== END 2024-02-29 11:37 | disposition home or self-care (01) ==
LOC: HO.HBS 07:56
PROVIDERS: PCP Internal Medicine; Visit Provider Surgery
DX: E66.01 Morbid (severe) obesity due to excess calories (principal); E66.813 Obesity, class 3; Z68.44 Body mass index [BMI] 60.0-69.9, adult
CPT/HCPCS: 99443

== ENCOUNTER → 2024-02-29 07:56 | Outpatient (BNVA) | payer OTHER, SELFPAY | PROVIDERS: PCP Internal Medicine; Visit Provider Surgery ==

== ENCOUNTER → 2024-03-21 09:15 | Outpatient (BNVA) | payer OTHER, SELFPAY | PROVIDERS: PCP Internal Medicine; Visit Provider Surgery | DX: Z00.01 Encounter for general adult medical examination with abnormal findings (principal); Z23 Encounter for immunization; L98.9 Disorder of the skin and subcutaneous tissue, unspecified; F32.0 Major depressive disorder, single episode, mild; E66.01 Morbid (severe) obesity due to excess calories; Z68.44 Body mass index [BMI] 60.0-69.9, adult | CPT/HCPCS: 90471; 90656; 96127; 99212; 99396 ==

== ENCOUNTER 2024-03-21 14:29 | Outpatient (AMB) | payer OTHER, SELFPAY ==
--- NOTE | 2024-03-21 14:32 | MHC.PC.OV ---
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 Accompanied by: Self / Same As Patient Allergies No Known Allergies Allergy (Verified 03/21/24 14:56) Medication List - Last Reconciled 03/21/24 by Ana Maria Berg MD cholecalciferol (vitamin D3) 50 mcg PO DAILY 90 days citalopram 40 mg PO DAILY gabapentin 600 mg PO Q8H 30 days losartan 25 mg PO DAILY 90 days semaglutide (weight loss) (Wegovy) 0.25 mg (0.5 mL) subcut QWEEK 4 weeks sennosides (senna) 8.6 mg PO BEDTIME PRN 90 days triamcinolone acetonide 0.5% 1 appl topical BID 30 days Tobacco use date assessed: 07/20/23 Dental Screening Dental Screen Date: 03/21/24 Did you have a dental visit in the last 12 months?: No Did you have a dental problem in the last 6 months where you did not have access to dental care?: No Was dental information given to patient?: Patient has dentist HPI HPI Comments History of Present Illness Details The patient is a 48-year-old male presenting for his physical exam. The patient's obesity is characterized by a body mass index (BMI) of 65.9. The patient has been prescribed Wegovy for weight management and has started the medication, though acquisition has been challenging. Additionally, the patient reports successful approval of the injection but faces difficulty in obtaining it routinely. The patient's hypertension is familial, as both parents are affected; the father has diabetes and hypertension. The patient denies any previous allergies. Medications noted include citalopram, gabapentin, and an unspecified stimulant regimen, as well as Senna for constipation. Mild major depression stable with citalopram. Will be sent for colonoscopy. Tdap done 2020 and next 1 should be 2030. He complains of macular skin lesions and will be referred to Dermatology. [facility] Medical History (Updated 03/21/24 @ 15:10 by Ana Maria Berg MD) Morbid obesity Daytime sleepiness Blurry vision COVID-19 Skin lesion Super-super obese Insomnia Depression with anxiety Surgical History No pertinent past surgical history Family History Father Diabetes Hypertension Paternal Grandmother Diabetes Mother Hypertension Social History Housing: Apartment Alcohol intake: former Patient Tobacco Use Status: Former Tobacco user Tobacco use type: Cigarette Years Smoked: 26 e-Cigarette/Vaping Use: Never Used Second Hand Smoke Exposure: No service: No Current occupational status: unemployed Cognitive needs: No Hearing needs: No Vision needs: No Questionnaire PHQ-9 Over the last 2 weeks, how often have you been bothered by any of the following problems? 1. Little interest or pleasure in doing things: not at all 2. Feeling down, depressed, or hopeless: not at all 3. Trouble falling or staying asleep, or sleeping too much: not at all 4. Feeling tired or having little energy: not at all 5. Poor appetite or overeating: not at all 6. Feeling bad about yourself - or that you are a failure or have let yourself or your family down: not at all 7. Trouble concentrating on things, such as reading the newspaper or watching television: not at all 8. Moving or speaking so slowly that other people could have noticed. Or the opposite - being so fidgety or restless that you have been moving around a lot more than usual: not at all 9. Thoughts that you would be better off or of hurting yourself in some way: not at all Total score: 0 Depression Screening Interpretation: Negative Depression Screening Done: Yes 52620 - PHQ-9 Billing: Yes Source: Developed by Drs. Pradeep De Jesus, Cele Olivares, Pa Smith and colleagues, with an educational katherine from [employer]. Thrive Questionnaire Date Thrive assessed: 07/20/23 I am a: Patient What is your living situation today?: I have a steady place to live Within the past 12 months, did the food you bought not last and you didn't have the money to get more?: I choose not to answer this question Within the past 12 months, did you worry whether your food would run out before you got money to buy more?: I choose not to answer this question Do you have trouble paying for medicines?: No Do you have trouble getting transportation to medical appointments?: No Do you have trouble paying your heating and electricity bill?: I choose not to answer this question Do you have trouble taking care of your child, family member or friend?: I choose not to answer this question Do you have trouble with day-to-day activities such as bathing, preparing meals, shopping, managing finances, etc.?: I choose not to answer this question Are you currently unemployed and looking for a job?: I choose not to answer this question Are you interested in more education?: I choose not to answer this question Please select the resources that you would like help with: None Currently or been in a relationship where the following occur: I choose not to answer THRIVE Score: 0 AUDIT C Alcohol Use Questionnaire (AUDIT-C) 1. How often do you have a drink containing alcohol?: Never Total Score: 0 Score Reviewed/Action Taken: No KURT-7 AMB Questionnaire KURT-7 Date KURT - 7 assessed: 07/20/23 Feeling nervous, anxious, or on edge: 0 = Not at all Not being able to stop or control worryin = Not at all Worrying too much about different things: 0 = Not at all Trouble relaxin = More than half the days Being so restless that it is hard to sit still: 2 = More than half the days Becoming easily annoyed or irritable: 2 = More than half the days Feeling afraid as if something awful might happen: 0 = Not at all Total KURT-7 score (0-4 normal; 5-9 mild; 10-14 moderate; 15-21 severe): 6 Source: Developed by Drs. Pradeep De Jesus, Cele Olivares, Pa Smith and colleagues, with an educational katherine from [employer]. KURT-7 Assessment Billing KURT-7 Assessment Tool: KURT-7 Assessment 60822 Review of Systems Const All systems reviewed & are unremarkable except as noted in HPI and below Card Denies chest pain at rest, Denies chest pain with activity, Denies edema, Denies irregular heart rhythm, Denies claudication, Denies dyspnea, Denies dyspnea on exertion, Denies orthopnea, Denies paroxysmal nocturnal dyspnea and Denies slow heart rate Resp Denies cough, Denies dyspnea and Denies dyspnea on exertion Musc Denies abnormal gait, Denies atrophy, Denies deformity and Denies limited range of motion Skin/Breast Denies bleeding lesions, Denies changing lesions, Reports lesions and Denies rash Neuro Denies abnormal gait, Denies behavioral changes and Denies lack of coordination Psych Denies behavioral changes Physical exam (Primary Care) Vital Signs: Last Vital Signs BP 132/84 03/21/24 14:33 BMI result Body Mass Index 65.9 BMI Assessment/Plan discussion: High BMI High, discussed plan: lifestyle, weight reduction, dietary and physical activity Tobacco/Smoking Status: Tobacco use Status Tobacco use date assessed 07/20/23 03/21/24 14:35 Patient Tobacco Use Status Former Tobacco user 03/21/24 14:35 Tobacco use type Cigarette 03/21/24 14:35 e-Cigarette/Vaping Use Never Used 03/21/24 14:35 PHQ-9: PHQ-9 Score PHQ-9: Total score 0 03/21/24 15:16 Depression Screening Interpretation: Negative Thrive Assessment: Date of Thrive Assessment Date Thrive assessed 07/20/23 03/21/24 14:35 Currently or been in a relationship where the following occur: I choose not to answer HENHI Head: Yes normal to inspection, Yes normocephalic and Yes atraumatic Ears: external ears normal Eyes General: appearance normal, both eyes and all related structures Eyelids: Yes eyelids normal Conjunctivae: conjunctivae normal Neck Neck: Yes normal visual inspection and Yes supple Resp Effort & Inspection: normal respiratory effort Auscultation: clear to auscultation bilaterally Cardio Jugular venous distension: no JVD Rate: regular rate Rhythm: regular rhythm Heart sounds: S1 normal heart sound present and S2 normal heart sound present GI Inspection: Yes normal to inspection Palpation (GI): Soft to palpation and nontender Auscultation: normal bowel sounds Skin General skin exam: no rashes or lesions noted Lesions: lesion noted (macular lesions in trunk and upper limbs) Neuro General: no focal motor deficits Extrem General: Yes full ROM Psych Appearance: grossly normal Office Procedures Flu Questionnaire Does the patient have a severe egg allergy?: No Does the patient have severe life threatening allergies?: No Does the patient have a fever or illness today?: No Has the patient ever had Guillain-[place]awnee Syndrome?: No Has the patient ever had any past reaction to a flu shot?: No Immunizations Fluarix Triv [id number] (PF) 45 mcg (15 mcg x 3)/0.5 mL IM syringe Performing Provider: Ana Maria Berg MD Performing Location: [facility] Administered by: ALBERT Parisi on 03/21/24 15:16 Dose Route Admin Location Dispensed Lot Number Expiration Date [facility] Armature Bander 0.5 mL IM Left Deltoid 0.5 mL [id number] 09/26/24 [id number] [employer] Mode VIS Given Date VIS Provided VIS Publication Date 03/21/24 Single Vaccine 20 Eligibility Eligibility Date Funding Source Not [facility] Eligible 03/21/24 Private Coding Level of Care Code Est Pt Level 3 (20198) Est Pt Prev Care 40-64y(71776) Diagnoses Adult general medical exam Z00.00 Skin lesion L98.9 Mild major depression F32.0 Super-super obese E66.01 Additional Codes KURT-7 Assessment Billing - KURT-7 Assessment Tool: KURT-7 Assessment 64733 ([id number]) PHQ-9 - 27056 - PHQ-9 Billing: Yes ([id number]) Time Spent (min) 33 Assessment & Plan Assessment & Plan (1) Adult general medical exam: Code(s): Z00.00 - Encounter for general adult medical examination without abnormal findings Category: Medical (2) Skin lesion: Code(s): L98.9 - Disorder of the skin and subcutaneous tissue, unspecified Category: Medical (3) Mild major depression: Code(s): F32.0 - Major depressive disorder, single episode, mild Category: Medical (4) Super-super obese: Comment: The BMI IS 64.9. PATIENT CURRENTLY ACTIVE IN WEIGHT MANAGEMENT PROGRAM. Code(s): E66.01 - Morbid (severe) obesity due to excess calories Category: Medical Plan - Continue current antihypertensive management regimen. - Increase Wegovy dose as tolerated for weight management. - Continue the use of Senna for constipation management. - Reinforce lifestyle modifications for obesity, including dietary changes and increased physical activity. - Scheduled follow-up for further evaluation of obesity management and medication adherence. Patient was informed and verbally consented to the use of an ambient scribe for clinic note documentation during this visit. During the visit, I discussed with the patient the challenges and importance of acquiring Wegovy regularly to optimize weight management. We reviewed the current treatment plan, including citalopram and its continued use. I clarified the importance of lifestyle modifications alongside pharmaceutical interventions for weight loss. We also talked about the impacts of familial hypertension and diabetes and the need for regular monitoring of blood pressure and weight reduction strategies. Follow-up visits were encouraged to monitor progress and evaluate medication efficacy and adherence. Orders: Orders Free T4 (Free Thyroxine) Today R79.89 - Other specified abnormal findings of blood chemistry Thyroglobulin Antibodies Today R79.89 - Other specified abnormal findings of blood chemistry Lipid Panel Today E78.5 - Hyperlipidemia, unspecified, I10 - Essential (primary) hypertension Vitamin D 25-OH Total Today E55.9 - Vitamin D deficiency, unspecified Thyroid Stimulating Hormone Today R79.89 - Other specified abnormal findings of blood chemistry Thyroid Peroxidase Antibodies Today R79.89 - Other specified abnormal findings of blood chemistry Comprehensive [place]. Panel Fast Today I10 - Essential (primary) hypertension Influenza [id number] Immunization Today Z23 - Encounter for immunization Referrals Gastroenterology Referral Z12.11 - Encounter for screening for malignant neoplasm of colon Dermatology Referral L98.9 - Disorder of the skin and subcutaneous tissue, unspecified Medications: New semaglutide (weight loss) (Wegovy) administer weeks 5 through 8 of therapy 0.5 mg (0.5 mL) subcut QWEEK 2 mL 0RF 4 weeks E66.01 - Morbid (severe) obesity due to excess calories Refilled sennosides (senna) 8.6 mg PO BEDTIME PRN 90 tabs 1RF constipation 90 days Patient Instructions: - Continue using prescribed medications including citalopram and gabapentin. - Increase Wegovy dose as discussed to enhance efficacy for weight management. - Maintain good diet and exercise habits to aid weight loss. - Use Senna as directed to manage constipation. - Monitor blood pressure at home and maintain a log for future visits. - Regular follow-up appointments for ongoing evaluation of health conditions and treatment plans.
[2024-03-21 14:33] VITALS: BP 132/84; BMI 65.9
== END 2024-03-21 15:20 | disposition home or self-care (01) ==
PROVIDERS: PCP Internal Medicine; Visit Provider Internal Medicine
DX: Z00.00 Encounter for general adult medical examination without abnormal findings (principal); F32.0 Major depressive disorder, single episode, mild; E66.01 Morbid (severe) obesity due to excess calories; Z68.44 Body mass index [BMI] 60.0-69.9, adult; L98.9 Disorder of the skin and subcutaneous tissue, unspecified; Z23 Encounter for immunization

== ENCOUNTER 2024-09-27 09:36 | Outpatient (AMB) | payer OTHER, SELFPAY ==
[2024-09-27 10:01] VITALS: BP 138/80; BMI 68.1
--- NOTE | 2024-09-27 10:01 | A.OFFPC_ITS ---
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 Accompanied by: Self / Same As Patient Allergies No Known Allergies Allergy (Verified 09/27/24 10:19) Medication List - Last Reconciled 09/27/24 by Ana Maria Berg MD cholecalciferol (vitamin D3) 50 mcg PO DAILY 90 days citalopram 40 mg PO DAILY gabapentin 600 mg PO Q8H 30 days losartan 25 mg PO DAILY 90 days semaglutide (weight loss) (Wegovy) 0.25 mg (0.5 mL) subcut QWEEK 4 weeks semaglutide (weight loss) (Wegovy) 0.5 mg (0.5 mL) subcut QWEEK 4 weeks sennosides (senna) 8.6 mg PO BEDTIME PRN 90 days triamcinolone acetonide 0.5% 1 appl topical BID 30 days Tobacco use date assessed: 09/27/24 Dental Screening Dental Screen Date: 09/27/24 Did you have a dental visit in the last 12 months?: No Did you have a dental problem in the last 6 months where you did not have access to dental care?: No Was dental information given to patient?: Patient has dentist HPI HPI Comments History of Present Illness Details The patient is a 49-year-old male presenting for a follow-up on multiple chronic conditions including vitamin D deficiency and obesity management. The patient has a history of vitamin D deficiency and thyroid dysfunction, for which repeat laboratory tests are planned. These conditions were identified in previous evaluations, and the patient is currently on vitamin D supplementation. The patient reports using gabapentin for sciatica, specifically for lumbar radiculopathy. This condition has been managed with medication, and the patient is aware of the need for ongoing management. Hypertension is managed with losartan 25 mg daily. The patient is compliant with this medication regimen. The patient experiences constipation, for which senna is used as a laxative. Additionally, eczema is managed with topical cream as needed. The patient has a BMI of 68 and has been advised to lose weight. He has previously lost 50 pounds and is encouraged to continue weight management efforts. The patient has participated in a weight management program and used Wegovy in the past, which helped manage anxiety related to weight loss. The patient reports a history of hematuria, which occurred once last year. He also reports dyspnea, which has been persistent for the past five to six months. [facility] Medical History (Updated 09/27/24 @ 20:40 by Ana Maria Berg MD) Mild major depression Anxiety Low back pain Depression Skin lesion COVID-19 Blurry vision Daytime sleepiness Adult general medical exam Screen for colon cancer Super-super obese Insomnia Depression with anxiety Surgical History No pertinent past surgical history Family History Father Diabetes Hypertension Paternal Grandmother Diabetes Mother Hypertension Social History Housing: Apartment Alcohol intake: former Patient Tobacco Use Status: Former Tobacco user Tobacco use type: Cigarette Years Smoked: 26 e-Cigarette/Vaping Use: Never Used Second Hand Smoke Exposure: No service: No Current occupational status: unemployed Cognitive needs: No Hearing needs: No Vision needs: No Questionnaire PHQ-9 Over the last 2 weeks, how often have you been bothered by any of the following problems? 1. Little interest or pleasure in doing things: not at all 2. Feeling down, depressed, or hopeless: not at all 3. Trouble falling or staying asleep, or sleeping too much: not at all 4. Feeling tired or having little energy: not at all 5. Poor appetite or overeating: not at all 6. Feeling bad about yourself - or that you are a failure or have let yourself or your family down: not at all 7. Trouble concentrating on things, such as reading the newspaper or watching television: not at all 8. Moving or speaking so slowly that other people could have noticed. Or the opposite - being so fidgety or restless that you have been moving around a lot more than usual: not at all 9. Thoughts that you would be better off or of hurting yourself in some way: not at all Total score: 0 Depression Screening Interpretation: Negative Depression Screening Done: Yes 30349 - PHQ-9 Billing: Yes Source: Developed by Cele MolinaW. Marshall, Pa Smith and colleagues, with an educational katherine from [employer]. Thrive Questionnaire Date Thrive assessed: 09/27/24 I am a: Patient What is your living situation today?: I have a place to live, but I am worried about losing it in the future Within the past 12 months, did the food you bought not last and you didn't have the money to get more?: I choose not to answer this question Within the past 12 months, did you worry whether your food would run out before you got money to buy more?: I choose not to answer this question Do you have trouble paying for medicines?: I choose not to answer this question Do you have trouble getting transportation to medical appointments?: I choose not to answer this question Do you have trouble paying your heating and electricity bill?: I choose not to answer this question Do you have trouble taking care of your child, family member or friend?: I choose not to answer this question Do you have trouble with day-to-day activities such as bathing, preparing meals, shopping, managing finances, etc.?: I choose not to answer this question Are you currently unemployed and looking for a job?: I choose not to answer this question Are you interested in more education?: I choose not to answer this question Please select the resources that you would like help with: None Currently or been in a relationship where the following occur: I choose not to answer THRIVE Score: 1 AUDIT C Alcohol Use Questionnaire (AUDIT-C) 1. How often do you have a drink containing alcohol?: Never Total Score: 0 Score Reviewed/Action Taken: No KURT-7 AMB Questionnaire KURT-7 Date KURT - 7 assessed: 09/27/24 Feeling nervous, anxious, or on edge: 0 = Not at all Not being able to stop or control worryin = Not at all Worrying too much about different things: 0 = Not at all Trouble relaxin = Not at all Being so restless that it is hard to sit still: 0 = Not at all Becoming easily annoyed or irritable: 0 = Not at all Feeling afraid as if something awful might happen: 0 = Not at all Total KURT-7 score (0-4 normal; 5-9 mild; 10-14 moderate; 15-21 severe): 0 Source: Developed by Drs. Pradeep De Jesus, Cele Olivares, Pa Smith and colleagues, with an educational katherine from [employer]. KURT-7 Assessment Billing KURT-7 Assessment Tool: KURT-7 Assessment 17940 Review of Systems Const All systems reviewed & are unremarkable except as noted in HPI and below Card Denies chest pain at rest, Denies chest pain with activity, Denies edema, Denies irregular heart rhythm, Denies claudication, Denies dyspnea, Denies dyspnea on exertion, Denies orthopnea, Denies paroxysmal nocturnal dyspnea and Denies slow heart rate Resp Denies cough, Denies dyspnea and Denies dyspnea on exertion GI Denies abdominal pain, Denies change in bowel habits, Denies excessive flatus, Denies nausea and Denies vomiting Physical exam (Primary Care) Vital Signs: Last Vital Signs BP 138/80 09/27/24 10:01 BMI result Body Mass Index 68.1 BMI Assessment/Plan discussion: High BMI High, discussed plan: lifestyle, weight reduction, dietary and physical activity Tobacco/Smoking Status: Tobacco use Status Tobacco use date assessed 09/27/24 09/27/24 10:10 Patient Tobacco Use Status Former Tobacco user 09/27/24 10:04 Tobacco use type Cigarette 09/27/24 10:04 e-Cigarette/Vaping Use Never Used 09/27/24 10:04 PHQ-9: PHQ-9 Score PHQ-9: Total score 0 09/27/24 10:23 Depression Screening Interpretation: Negative Thrive Assessment: Date of Thrive Assessment Date Thrive assessed 09/27/24 09/27/24 10:10 Currently or been in a relationship where the following occur: I choose not to answer Resp Effort & Inspection: normal respiratory effort Auscultation: clear to auscultation bilaterally Cardio Jugular venous distension: no JVD Rate: regular rate Rhythm: regular rhythm Heart sounds: S1 normal heart sound present and S2 normal heart sound present Extrem General: Yes full ROM Coding Level of Care Code Est Pt Level 4 (22253) Complex EM visit Add On G2211 Diagnoses Essential hypertension I10 Super-super obese E66.01 Low vitamin D level R79.89 Mild major depression F32.0 Anxiety F41.9 Lumbar radiculopathy M54.16 Chronic idiopathic constipation K59.04 Additional Codes KURT-7 Assessment Billing - KURT-7 Assessment Tool: KURT-7 Assessment 78221 ([id number]) PHQ-9 - 52042 - PHQ-9 Billing: Yes ([id number]) Time Spent (min) 23 Assessment & Plan Assessment & Plan (1) Essential hypertension: Code(s): I10 - Essential (primary) hypertension Category: Medical (2) Super-super obese: Comment: The BMI IS 64.9. PATIENT CURRENTLY ACTIVE IN WEIGHT MANAGEMENT PROGRAM. Code(s): E66.01 - Morbid (severe) obesity due to excess calories Category: Medical (3) Low vitamin D level: Code(s): R79.89 - Other specified abnormal findings of blood chemistry Category: Medical (4) Mild major depression: Code(s): F32.0 - Major depressive disorder, single episode, mild Category: Medical (5) Anxiety: Code(s): F41.9 - Anxiety disorder, unspecified Category: Medical (6) Lumbar radiculopathy: Code(s): M54.16 - Radiculopathy, lumbar region Category: Medical (7) Chronic idiopathic constipation: Code(s): K59.04 - Chronic idiopathic constipation Category: Medical Plan The plan includes repeating laboratory tests to monitor vitamin D levels and thyroid function. The patient is advised to continue vitamin D supplementation and adhere to the current medication regimen for hypertension, which includes losartan 25 mg daily. For sciatica and lumbar radiculopathy, the patient will continue using gabapentin as prescribed. Constipation management will involve the continued use of senna, and eczema will be managed with topical creams as needed. The patient is encouraged to maintain weight loss efforts, having previously lost 50 pounds, and to continue participating in weight management programs. The use of Wegovy in the past was beneficial, and further weight management strategies will be discussed in future visits. The patient will be monitored for cataract progression, and any necessary interventions will be considered based on future evaluations. Additionally, the patient will undergo urine analysis to investigate the cause of hematuria and assess any potential underlying conditions contributing to dyspnea. Patient was informed and verbally consented to the use of an ambient scribe for clinic note documentation during this visit. Orders: Orders Thyroglobulin Antibodies Today R79.89 - Other specified abnormal findings of blood chemistry Thyroid Stimulating Hormone Today R79.89 - Other specified abnormal findings of blood chemistry Vitamin D 25-OH Total Today E55.9 - Vitamin D deficiency, unspecified ECG 12 lead EKG Today R94.31 - Abnormal electrocardiogram [ECG] [EKG] UA CC w/rflx Micro + Cult Today R30.0 - Dysuria Free T4 (Free Thyroxine) Today R79.89 - Other specified abnormal findings of blood chemistry Thyroid Peroxidase Antibodies Today R79.89 - Other specified abnormal findings of blood chemistry Medications: New ergocalciferol (vitamin D2) 1,250 mcg PO QWEEK 13 caps 1RF 90 days tirzepatide (weight loss) (Zepbound) for 4 weeks 2.5 mg (0.5 mL) subcut QWEEK 2 mL 0RF 4 weeks E66.01 - Morbid (severe) obesity due to excess calories Discontinued cholecalciferol (vitamin D3) Discontinued Reason: Patient Completed Course 50 mcg PO DAILY 90 days 90 caps 1RF semaglutide (weight loss) (Wegovy) administer weeks 1 through 4 of therapy Discontinued Reason: Patient Completed Course 0.25 mg (0.5 mL) subcut QWEEK 4 weeks 2 mL 0RF E66.01 - Morbid (severe) obesity due to excess calories semaglutide (weight loss) (Wegovy) administer weeks 5 through 8 of therapy Discontinued Reason: Patient Completed Course 0.5 mg (0.5 mL) subcut QWEEK 4 weeks 2 mL 0RF E66.01 - Morbid (severe) obesity due to excess calories
--- OUTSIDE RECORDS SUMMARY | 2024-09-27 10:23 | XMS_ITS | Clinical Summary ---
Author Organization [address] [place] [address] [place] [phone] Phone Care Team Providers Care Revolving Field Assembler Name Role Phone Ana Maria Berg MD Primary Care Provider [phone] Allergies No known active allergies Medications No known medications Encounters Date Type Department Care Team Description 08/16/2024 3:00 PM EDT Office Visit Bariatric Surgery - [address] [place] [phone] Indigo Colon MD Morbid obesity with BMI of 60.0-69.9, adult (CMS/HCC V24, CMS/HCC V28) (Primary Dx); Sleep apnea, unspecified type from Last 3 Months Social History Tobacco Use Types Packs/Day Years Used Date Smoking Tobacco: Never Assessed Sex and Gender Information Value Date Recorded Sex Assigned at Not on file Legal Sex Male 4:17 AM EST Gender Identity Not on file Sexual Orientation Not on file Last Filed Vital Signs Vital Sign Reading Time Taken Comments Blood Pressure 157/86 08/16/2024 3:04 PM EDT Pulse 79 08/16/2024 3:04 PM EDT Temperature 36.7 C (98.1 F) 08/16/2024 3:04 PM EDT Respiratory Rate - - Oxygen Saturation - - Inhaled Oxygen Concentration - - Weight 232 kg (512 lb) 08/16/2024 3:04 PM EDT Height 185.4 cm (6' 1 ) 08/16/2024 3:04 PM EDT Body Mass Index 67.55 08/16/2024 3:04 PM EDT Plan of Treatment Upcoming Encounters Date Type Department Care Team ([facility] st Contact Info) Description 10/25/2024 1:00 PM EDT Nutrition Bariatric Surgery - [place] [address] [facility] [address] [place] [address] Nuris Roger, RD [address] [facility] [address] [place] [address] Health Maintenance Due Date Last Done Comments DTaP,Tdap,and Td Vaccines (1 - Tdap) 1996 Hepatitis B Vaccines (1 of 3 - 19+ 3-dose series) 1996 COVID-19 Vaccine ( - 2023-2 5 season) 2023 Cholesterol Screening (Lipid Panel) 08/16/2024 Colorectal Cancer Screening: Colonoscopy 08/16/2024 Depression Screening 08/16/2024 HIV Screening 08/16/2024 Hepatitis C Screening 08/16/2024 Hypertension/CHF/CAD Annual BMP Blood Test 08/16/2024 Medicare Annual Wellness Visit 08/16/2024 Social Influencers of Health Screening 08/16/2024 Influenza Vaccine (#1) 2024 , 03/12/2022, 02/10/2013 HIB Vaccines Aged Out No longer eligi ble based on patient's age to complete this topic HPV Vaccines Aged Out No longer eligi ble based on patient's age to complete this topic Hepatitis A Vaccines Aged Out No long er eligible based on patient's age to complete this topic IPV Vaccines Aged Out No longer eligi ble based on patient's age to complete this topic MMR Vaccines Aged Out No longer eligi ble based on patient's age to complete this topic Meningococcal ACWY Vaccine Aged Out N o longer eligible based on patient's age to complete this topic Meningococcal B Vaccine Aged Out No l onger eligible based on patient's age to complete this topic Pneumococcal Vaccine: Pediatrics (0 to 5 Years) and At-Risk Patients (6 to 64 Years) Aged Out No longer eligible b ased on patient's age to complete this topic RSV Immunization Patients Under 20 months Aged Out No longer eligible b ased on patient's age to complete this topic Varicella Vaccines Aged Out No longer eligible based on patient's age to complete this topic Insurance [place] [phone] [employer] MEDICARE Member Subscriber Plan / Payer (Ef fective 2016-Present) Name:JALEN CAEMRON Relation to Subscriber:Self Name:Cameron Pollack Payer ID:[id number] Group ID:[id number] Type:Not on file Address: [place] [address] [address] [phone] Care Teams Revolving Field Assembler Relationship Specialty Start Date End Date Ana Maria Berg MD 2 [facility] , [address] [facility] D[facility] [place], [place] PCP - General Internal Medicine 08/15/24
== END 2024-09-27 10:34 | disposition home or self-care (01) ==
LOC: HO.HMCH 09:37
PROVIDERS: PCP Internal Medicine; Visit Provider Internal Medicine
DX: I10 Essential (primary) hypertension (principal); E66.01 Morbid (severe) obesity due to excess calories; Z68.45 Body mass index [BMI] 70 or greater, adult; R79.89 Other specified abnormal findings of blood chemistry; F32.0 Major depressive disorder, single episode, mild; F41.9 Anxiety disorder, unspecified; M54.16 Radiculopathy, lumbar region; K59.04 Chronic idiopathic constipation

== ENCOUNTER → 2024-09-27 09:36 | Outpatient (REF) | payer OTHER, SELFPAY ==
--- NOTE | 2024-09-27 10:49 | ECG_ITS ---
Test Reason : ABN EKG Blood Pressure : */* mmHG Vent. Rate : 87 BPM Atrial Rate : 87 BPM P-R Int : 162 ms QRS Dur : 86 ms QT Int : 344 ms P-R-T Axes : 67 86 35 degrees QTcB Int : 413 ms Normal sinus rhythm Normal ECG When compared with ECG of 10-Nov-2022 20:01, No significant change was found Referred By: Ana Maria Berg Electronically Signed By: SUSHIL REBOLLEDO MD
[2024-09-27 11:23] LABS: Appearance Urine Clear; Glucose Urine UA Negative (Negative); PH 6.0 (5.0-9.0); Specific Gravity - Urine 1.020 (1.005-1.025); UMIC TRIGGER UACC YES
[2024-09-27 11:25] LABS: UACC Culture Trigger YES
[2024-09-27 12:05] LABS: Alanine Aminotransferase 25 U/L (0-40); Albumin Level 4.2 g/dL (3.5-5.0); Alkaline Phosphatase 69 U/L (39-117); Anion Gap 12 (12-20); Aspartate Amino Transferase 21 U/L (5-37); Blood Urea Nitrogen 11 mg/dL (9-16); Calcium 8.9 mg/dL (8.4-10.2); Carbon Dioxide 28 mmol/L (22-29); Chloride 104 mmol/L (96-108); Cholesterol 149 mg/dL (<200); Estimated Glomerular Filt Rate > 60; HDL Cholesterol 46 mg/dL (>40); Potassium 4.6 mmol/L (3.3-5.1); Sodium 139 mmol/L (135-145); Total Protein 7.5 g/dL (6.5-8.0); Triglycerides 56 mg/dL (<150)
[2024-09-27 12:25] LABS: Free T4 (Free Thyroxine) 1.06 ng/dL (0.71-1.85); Thyroid Stimulating Hormone 2.23 uIU/mL (0.32-4.0)
[2024-09-29 11:58] LABS: Thyroglobulin Antibodies <1 IU/mL (< or = 1)
== END ==
LOC: HO.CARD 09:36
PROVIDERS: PCP Internal Medicine; Visit Provider Internal Medicine
DX: I10 Essential (primary) hypertension (principal); E66.01 Morbid (severe) obesity due to excess calories; E55.9 Vitamin D deficiency, unspecified; F32.0 Major depressive disorder, single episode, mild; F41.9 Anxiety disorder, unspecified; M54.16 Radiculopathy, lumbar region; K59.04 Chronic idiopathic constipation; R79.89 Other specified abnormal findings of blood chemistry; R94.31 Abnormal electrocardiogram [ECG] [EKG]; R30.0 Dysuria; Z13.31 Encounter for screening for depression; Z13.39 Encounter for screening examination for other mental health and behavioral disorders
CPT/HCPCS: 36415; 80053; 80061; 81001; 82306; 84439; 84443; 86376; 86800; 87086; 93005; 96127; 99212

== ENCOUNTER → 2024-09-27 10:49 | Outpatient (BNV) | payer OTHER, SELFPAY | PROVIDERS: PCP Internal Medicine; Visit Provider Internal Medicine Cardiovascular Disease | DX: R94.31 Abnormal electrocardiogram [ECG] [EKG] (principal) | CPT/HCPCS: 93010 ==